=== PATIENT | male | born 1970 | race Caucasian/White ===

== ENCOUNTER 2018-03-31 16:02 | Outpatient (CLI) | payer OTHER, SELFPAY ==
[2018-04-02 12:00] LABS: HIV-1/2 Ag & Ab Screen Negative (NEGAT)
== END 2018-03-31 16:22 ==
DX: Z11.4 Encounter for screening for human immunodeficiency virus [HIV] (principal)
CPT/HCPCS: 36415; 87389

== ENCOUNTER 2018-04-27 22:07 | Emergency (ER) | payer OTHER, SELFPAY ==
[2018-04-27 22:14] VITALS: BP 147/92; PULSE 108; RESP 24; TEMP 36.7; O2SAT 97
--- NOTE | 2018-04-27 22:26 | ED.GENADUL_ITS ---
Discharge Plan Disposition Patient Disposition: HOME Condition: Stable Discharge Details Chief Complaint: Orthopedic Clinical Impression: Right ankle sprain Primary Care Provider: Janki,Local ED Provider: Janny Statno Home Meds and New Rx's Prescriptions: No Action dextroamphetamine-amphetamine 10 MG tablet 10 mg PO QID RF: 0 testosterone cypionate 100 MG/ML oil 50 mg IM RF: 0 ipratropium-albuterol 3 ML solution for nebulization 3 ml Inhalation Q6H Qty: 30 RF: 0 Ventolin HFA 60 PUFF/INH HFA aerosol inhaler 18 gm Inhalation Q6H Qty: 1 RF: 0 fluticasone 16 GM spray,suspension 16 gm NS DAILY Qty: 1 RF: 0 Discharge Instructions Instructions: Ankle Sprain (ED) Additional Instructions: Rest, ice, and elevate right foot as much as possible. Alternate motrin and tylenol as needed and directed for pain. Use crutches for ambulation. Follow up with orthopedics if your pain persists or worsens. Return immediately to the emergency department for re-evaluation and/or additional imaging if your symptoms worsen. Referrals: Prieto Lakhani MD [ [facility] STAFF PHYSICIAN] - Discharge Data Discharge Physician: Janny Staton Medical Decision Making 48-year-old male who presents with right ankle pain after slipping and falling on ice this afternoon. Patient has not taken anything for pain. No acute findings on exam. No deformity. Neurovascular intact. We will give a dose of ibuprofen and sent for right ankle x-ray. Patient is requesting additional medicine for pain. Will give a dose of Tylenol. 2340 --x-ray reviewed and negative for acute fracture. Soft tissue swelling noted. Patient is complaining of persistent significant pain. Patient states it is mainly in his right anterior ankle. He is also c/o pain on top of his foot near his ankle. Pt initially denied foot pain and only c/o R ankle pain. Xray was able to view R foot at area of pt's pain but pt was offered additional imaging with foot xray and/or CT of foot/ankle but pt is declining this at this time. Pt is requesting a lidoderm patch. Will place lidoderm patch, presley wrap/stirrup splint and crutches. Pt is instructed to f/u with orthopedics if pain persists or worsens and return to the emergency department at anytime if he has persistent worsening symptoms for repeat imaging including x-ray or CT. Patient has not taken any medication prior to his arrival to the ED tonight. He is instructed that the best plan would be to take ibuprofen every 6 hours for the next few days, rest, ice and elevate Medical Records Medical records reviewed: Yes I reviewed the patient's medical records. Imaging Data Radiologic Study: Radiologist's impression: XR Right Ankle Complete, 3 or more Views EXAM DATE/TIME: 04/27/2018 10:26 PM FINDINGS: Bones/joints: Bone mineralization is age-appropriate. There is no evidence of fracture. No evidence of dislocation. Noninflamed enthesophyte seen within the region of the Achilles tendon.There is a noninflamed plantar enthesophyte. The joint spaces are adequately preserved; no significant degenerative narrowing and no bony erosion seen. Soft tissues: No radiopaque foreign body present. There is soft tissue swelling present. IMPRESSION: 1. No acute osseous abnormality. 2. Soft tissue swelling only. HPI General Mode of arrival: wheelchair . Date/Time Provider Initiated Documentation: 04/27/18 22:23 . Limitations to Documentation: no limitations . Information obtained by: patient . HPI Narrative: Patient is a 48-year-old male who presents with right ankle pain after slipping and falling on ice 3 PM today. Patient states he has been ambulating but with pain. Patient is complaining of pain in the anterior right ankle. Denies any foot or heel pain. Patient has not taken anything for pain. Related Data Home Medications Medication Instructions Recorded Confirmed dextroamphetamine-amphetamine 10 mg PO QID 11/08/17 04/27/18 testosterone cypionate 50 mg IM 11/08/17 Ventolin HFA 18 gm INHALATION Q6H #1 inh 11/13/17 04/27/18 fluticasone 16 gm NS DAILY #1 btl 11/13/17 04/27/18 ipratropium-albuterol 3 ml INHALATION Q6H #30 vial 11/13/17 04/27/18 Previous Rx's Medication Instructions Recorded Ventolin HFA 18 gm INHALATION Q6H #1 inh 11/13/17 fluticasone 16 gm NS DAILY #1 btl 11/13/17 ipratropium-albuterol 3 ml INHALATION Q6H #30 vial 11/13/17 Allergies Allergy/AdvReac Type Severity Reaction Status Date / Time No Known Allergies Allergy Unverified 04/27/18 22:18 General Stated Complaint: Orthopedic LISA: 4 Review of Systems Review of Systems All systems reviewed & are unremarkable except as noted in HPI and below Constitutional Reports as per HPI, Denies chills and Denies fever(s) Eyes Denies blurry vision ENT Denies dizziness, Denies sore throat and Denies throat swelling Cardiovascular Denies chest pain and Denies dyspnea Respiratory Denies dyspnea Gastrointestinal Denies abdominal pain, Denies diarrhea and Denies vomiting Genitourinary Denies hematuria and Denies dysuria Musculoskeletal Denies back pain and Denies numbness Integumentary/Breasts Denies lesions and Denies rash Neurologic Denies dizziness and Denies numbness Allergic/Immunologic Denies throat swelling PFSH Medical History Obstructive sleep apnea (Chronic) Surgical History History of surgical removal of pilonidal cyst (Acute) Hx of cholecystectomy (Chronic) Social History Smoking/Tobacco Use Status: Current every day Exam Const General: cooperative, healthy appearing and no acute distress HENMT Head: normal to inspection Mouth: oral mucosae normal Eyes General: appearance normal, both eyes and all related structures Neck Neck: normal visual inspection Resp Effort & Inspection: normal respiratory effort and able to speak in complete sentences Cardio Rate: regular rate Skin General skin exam: no rashes or lesions noted Neuro General: alert, awake and oriented x3 Motor: muscle tone normal throughout Extrem Left lower extremity: ankle Details: tenderness (Anterior. No pain, tenderness or edema in lateral or medial malleolus.), no edema and normal ROM; no warmth, no ecchymosis, no crepitus and no foreign bodies and foot Details: normal capillary refill, normal to inspection and vascular exam Details: dorsalis pedis pulse present and posterior tibial pulse present; no ecchymosis and no crepitus Psych Appearance: grossly normal Affect: normal affect Course Vital Signs Temperature 98.1 F 04/27/18 22:14 Pulse 108 H 04/27/18 22:14 Respiratory Rate 24 04/27/18 22:14 Blood Pressure 147/92 H 04/27/18 22:14 Pulse Oximetry 97 04/27/18 22:14 Temperature 98.1 F 04/27/18 22:14 Temperature Source Temporal Artery Scan 04/27/18 22:14 Pulse 108 H 04/27/18 22:14 Respiratory Rate 24 04/27/18 22:14 Respiratory Effort 04/27/18 22:14 Blood Pressure 147/92 H 04/27/18 22:14 Blood Pressure Position Sitting 04/27/18 22:14 Pulse Oximetry 97 04/27/18 22:14 Oxygen Delivery Method Room Air 04/27/18 22:14 Oxygen Flow Rate 0 04/27/18 22:14 Pain Level 8 04/27/18 22:16
[2018-04-27] MEDS: Ibuprofen 600 MG TAB PO (22:30)
--- NOTE | 2018-04-27 22:37 | DI.RAD_ITS ---
SYMPTOM/DIAGNOSIS: S/P TWISTING INJURY, R/O ACUTE FRACTURE RIGHT ANKLE: 04/27 Three views were obtained. No fracture is seen. The ankle mortise appears well maintained.
[2018-04-27] MEDS: Acetaminophen 500 MG TAB 1000 MG PO (22:45)
--- NOTE | 2018-04-27 23:28 | NUR.NOTE ---
Nursing Note: MD updated that pt is still uncomfortable and would like an update as to plan of care. Pt is unsatisfied with Tylenol/ibuprofen pain management.
--- NOTE | 2018-04-27 23:31 | DI.VRAD_ITS ---
EXAM: XR Right Ankle Complete, 3 or more Views EXAM DATE/TIME: 04/27/2018 10:26 PM CLINICAL HISTORY: 48 years old, male; Pain and injury or trauma; Fall; Initial encounter; Blunt trauma; Ankle; Right; Injury details: S/P twisting injury, R/O acute fracture TECHNIQUE: XR Right ankle 3 or more views. COMPARISON: No relevant prior studies available. FINDINGS: Bones/joints: Bone mineralization is age-appropriate. There is no evidence of fracture. No evidence of dislocation. Noninflamed enthesophyte seen within the region of the Achilles tendon.There is a noninflamed plantar enthesophyte. The joint spaces are adequately preserved; no significant degenerative narrowing and no bony erosion seen. Soft tissues: No radiopaque foreign body present. There is soft tissue swelling present. IMPRESSION: 1. No acute osseous abnormality. 2. Soft tissue swelling only. Dictated and Authenticated by: David Benitez MD. Ordering:GAEL Soliman MD
[2018-04-27] MEDS: Lidocaine 5% Patch 1 PATCH TP (23:44)
== END 2018-04-28 00:09 | disposition home or self-care (01) ==
PROVIDERS: Emergency Provider Physician Assistant
DX: S93.401A Sprain of unspecified ligament of right ankle, initial encounter (principal); W00.0XXA Fall on same level due to ice and snow, initial encounter
CPT/HCPCS: 29515; 99283; 73610; E0114; L1902

== ENCOUNTER 2018-11-24 13:34 | Outpatient (REF) | payer OTHER, SELFPAY | END 2018-11-24 13:54 | LOC: NCHCN 13:34 | PROVIDERS: PCP Nurse Practitioner; Visit Provider Nurse Practitioner Family | DX: R19.7 Diarrhea, unspecified (principal) | CPT/HCPCS: 87324 ==

== ENCOUNTER 2020-02-26 13:28 | Outpatient (REF) | payer OTHER, SELFPAY ==
[2020-02-26 20:59] LABS: HCT 49.3 % (40.0-50.0); HGB 17.2 g/dL (13.5-17.5); MCH 32.8 pg (27.0-33.0); MCHC 34.9 % (32.0-36.0); MCV 93.9 fL (80-95); MPV 11.4 fL (8.0-11.0); Platelet Count 155 10^3/uL (130-400); RBC 5.25 10^6/uL (4.36-5.78); RDW 12.6 % (11.8-14.1); RDW-SD 44.1 fL; WBC 6.91 10^3/uL (4.4-10.8)
[2020-02-26 21:48] LABS: ALT 50 U/L (16-63); AST 26 U/L (15-37); Albumin 4.1 g/dL (3.4-5.0); Alkaline Phosphatase 60 U/L (46-116); Anion Gap 7.5 mmol/L (3-11); BUN 20 mg/dL (7-18); Bilirubin, Total 0.5 mg/dL (0.2-1.0); CO2 27.5 mmol/L (21.0-32.0); CREATININE 1.34 mg/dL (0.70-1.30); Calcium 9.1 mg/dL (8.5-10.1); Chloride 104 mmol/L (98-107); Estimated GFR 56.66 (mL/min/1.73m2); Glucose 132 mg/dL (74-106); Potassium 3.9 mmol/L (3.5-5.1); Sodium 139 mmol/L (136-145); Total Protein 7.5 g/dL (6.4-8.2)
[2020-02-29 10:09] LABS: HIV-1/2 Ag & Ab Screen Negative (Negative)
[2020-02-29 10:47] LABS: Hepatitis C Ab w Rflx HCV PCR Negative (Negative)
== END 2020-02-26 13:48 ==
LOC: NCHCN 13:28
PROVIDERS: PCP Nurse Practitioner; Visit Provider Internal Medicine
DX: Z72.51 High risk heterosexual behavior (principal); K76.0 Fatty (change of) liver, not elsewhere classified
CPT/HCPCS: 80053; 85027; 86803; 87389

== ENCOUNTER 2020-05-20 03:24 | Outpatient (CLI) | payer OTHER, SELFPAY ==
[2020-05-21 16:47] LABS: COVID-19 RT-PCR Result NEGATIVE (Negative)
== END 2020-05-20 03:44 ==
PROVIDERS: PCP Nurse Practitioner; Visit Provider Family Medicine
DX: Z11.52 Encounter for screening for COVID-19 (principal); Z01.811 Encounter for preprocedural respiratory examination
CPT/HCPCS: U0003

== ENCOUNTER → 2020-05-23 04:13 | Outpatient (CLI) | payer OTHER, SELFPAY ==
[2020-05-23] MEDS: Inhaler, Assist Device 1 EACH MC (16:28)
[2020-05-23] MEDS: Albuterol HFA 18 GM 200 PUFF INH IH (16:28)
--- NOTE | 2020-05-26 17:54 | W.PFT ---
Date of service: 05/23/20 Time of Service: 03:00 Pulmonary Function Test Result Interpretation Spirometry: Shows no evidence of obstructive airways disease, no bronchodilator response Lung Volumes: No evidence of restriction Diffusion Capacity: Elevated even when corrected to alveolar volume Airway Pressure: Normal Impression Isolated elevated diffusion capacity. This constellation of findings can be seen in asthma, therefore if the diagnosis of asthma is in question, proceeding with methacholine challenge testing may prove to be useful Clinical Correlation therefore is recommended.
== END ==
PROVIDERS: PCP Internal Medicine; Visit Provider Internal Medicine
DX: R05 Cough (principal); R06.09 Other forms of dyspnea; Z87.891 Personal history of nicotine dependence
CPT/HCPCS: 94060; 94726; 94729

== ENCOUNTER 2021-09-01 14:50 | Outpatient (REF) | payer SELFPAY ==
[2021-09-01 13:56] LABS: HCT 50.7 % (40.0-50.0); HGB 17.4 g/dL (13.5-17.5); MCH 31.5 pg (27.0-33.0); MCHC 34.3 % (32.0-36.0); MCV 92 fL (80-95); MPV 11.3 fL (8.0-11.0); Platelet Count 130 10^3/uL (130-400); RBC 5.53 10^6/uL (4.36-5.78); RDW 12.3 % (11.8-14.1); RDW-SD 41.4 fL
[2021-09-01 14:11] LABS: ALT 72 U/L (16-63); AST 31 U/L (15-37); Alkaline Phosphatase 66 U/L (46-116); Anion Gap 7.1 mmol/L (3-11); BUN 12 mg/dL (7-18); Bilirubin, Total 0.3 mg/dL (0.2-1.0); CO2 29.9 mmol/L (21.0-32.0); CREATININE 1.2 mg/dL (0.70-1.30); Calcium 8.4 mg/dL (8.5-10.1); Chloride 103 mmol/L (98-107); Glucose 202 mg/dL (74-106); Hemoglobin A1C 6.3 % (<5.7); Potassium 3.9 mmol/L (3.5-5.1); Sodium 140 mmol/L (136-145); Total Protein 7.6 g/dL (6.4-8.2)
== END 2021-09-01 14:51 | disposition home or self-care (01) ==
LOC: NCHCN 14:50
PROVIDERS: PCP Internal Medicine; Visit Provider Family Medicine
DX: Z00.00 Encounter for general adult medical examination without abnormal findings (principal); G47.419 Narcolepsy without cataplexy; K76.0 Fatty (change of) liver, not elsewhere classified; E66.9 Obesity, unspecified; Z13.1 Encounter for screening for diabetes mellitus
CPT/HCPCS: 80053; 85027; 83036

== ENCOUNTER 2021-11-28 12:02 | Outpatient (CLI) | payer OTHER, SELFPAY ==
[2021-11-29 11:52] LABS: Syphilis Serology (RPR) Positive (Negative)
[2021-12-02 14:18] LABS: Testosterone, Total 392 ng/dL (240-950)
[2021-12-04 09:37] LABS: RPR Titer 1:32 (Negative)
[2021-12-04 09:39] LABS: RPR Screen w/Reflex Positive (Negative)
== END 2021-11-28 12:03 | disposition home or self-care (01) ==
LOC: LBO 12:03
PROVIDERS: PCP Internal Medicine; Visit Provider Internal Medicine
DX: A53.0 Latent syphilis, unspecified as early or late (principal); E29.1 Testicular hypofunction
CPT/HCPCS: 0064U; 36415; 84403; 86593; 86780; 86592

== ENCOUNTER 2022-02-02 01:03 | Outpatient (RCR) | payer OTHER, SELFPAY ==
--- OUTSIDE RECORDS SUMMARY | 2022-01-26 01:19 | XMS_ITS | Encounter Summary ---
:1970 Author Organization [facility] Address [address] [address] Care Team Providers Name Role Phone Vandana Helton MD Primary Care Provider Encounter Details Date Type Department Care Team Description 01/01/2019 Office Visit Urology at [facility] [place] Tolu Kovacs, Erectile dysfunction, [facility] unspecified erectile Drive [facility] [place] [address] UROLOGY [phone] [place], [place] [address] Social History Tobacco Use Types Packs/Day Years Used Date Current Every Day Smoker Smokeless Tobacco: Never Used Comments: 3/4 pack Sex Assigned at Date Recorded Not on file documented as of this encounter Last Filed Vital Signs Vital Sign Reading Time Taken Comments Blood Pressure 142/91 01/01/2019 1:02 PM EDT Pulse 84 01/01/2019 1:02 PM EDT Temperature 37.5 ??C (99.5 ??F) 01/01/2019 1:02 PM EDT Respiratory Rate - - Oxygen Saturation - - Inhaled Oxygen Concentration - - Weight - - Height - - Body Mass Index - - documented in this encounter Progress Notes Tolu Kovacs MD - 01/01/2019 1:00 PM EDT I had the pleasure of seeing Mr. Olson back today in followup. He presents today for duplex Dopplerultrasonography of his penis to identify and characterize his erectile dysfunction and to properly titrate appropriate intercavernosal injection therapy. ?? PROCEDURE: The patient was brought back to the procedure room. The procedure was explained in detailand he agreed to proceed. He was given an injection of 20 units of mix #5. This is a standard range dose mix consisting of 30 mg papaverine, 1 mg phentolamine, and 10 mcg prostaglandin E1. About 15 minutes later, he had a 30% erection and measurements were taken. There was no abnormal penile curvatureseen. Cavernosal arterial diameters were 1.4 mm on the right and 1.4 mm on the left. Peak systolic velocities were 42 cm/second on the right and 40 cm/second on the left. End diastolic velocities were 6 cm/second on the right and 6 cm/second on the left. More distally, PSV/EDV was 27/6 cm/s (midsharft) on the right and 25/9 (distal shaft on the right). More distally, PSV/EDV was 23/7 (midshaft) on the left) and 18/7 (distal shaft on the left). No perforators were seen traversing between the corpora. Cavernosal arteries had normal vascular integrity and smooth vessel newsome. Erectile tissue appeared normal with intact integrity and homogeneity throughout. There were no plaques seen on grayscale evaluation for Peyronie's disease. Tunica albuginea integrity appeared normal, with smooth and continuous tunica with thickness less than 2 mm. At the end of the procedure, his phallus had mostly detumesced. He denied penile pain. He was discharged from clinic with appropriate plans for followup. ?? ASSESSMENT/PLAN: Mr. Olson is a very pleasant 48-year-old gentleman with isolated venoocclusive erectile dysfunction. We discussed this issue at length today. I think he will do well with a sample of mix #9 (40 mcg alprostadil Trimix) at similar dosing at home. We discussed proper dosing and administration of this medication as well as potential side effects in detail. We also discussed priapism Aure advised him to seek medical attention for a prolonged painful erection that does not resolve after4 hours. He expressed understanding and would like to proceed. I have given him a sample dose and supplies and I will see him back in one month to assess his progress. ?? Thank you for allowing me to participate in his care. Please do not hesitate to contact me if you have any questions. documented in this encounter Plan of Treatment Not on filedocumented as of this encounter Visit Diagnoses Diagnosis Erectile dysfunction, unspecified erecti le dysfunction type documented in this encounter Care Teams Outpatient Program Coordinator Relationship Specialty Start Date End Date Vandana Helton MD PCP - General Family Medicine 10/31/18 [address] [place] [address] documented as of this encounter
--- OUTSIDE RECORDS SUMMARY | 2022-01-26 01:19 | XMS_ITS | Encounter Summary ---
:1970 [place] [address] Care Team Providers Name Role Phone Vandana Helton MD Primary Care Provider Encounter Details Date Type Department Care Team Description 03/16/2019 Telephone Urology [place] [facility] [place]u Kovacs MD [facility] [place] [address] UROLOGY [phone] [place], [place] [address] (Wo rk) Social History Tobacco Use Types Packs/Day Years Used Date Current Every Day Smoker Smokeless Tobacco: Never Used Comments: 3/4 pack Sex Assigned at Date Recorded Not on file documented as of this encounter Miscellaneous Notes Telephone Encounter - Lita Perea - 03/16/2019 12:02 PM EST Called PT and LMOM asking PT to please call back. PT canceled 03/13/[address] Kovacs via [employer]. Looking to see if PT wants to reschedule. Will mail letter. documented in this encounter Plan of Treatment Not on filedocumented as of this encounter Visit Diagnoses Not on filedocumented in this encounter Care Teams Operative Supervisor Relationship Specialty Start Date End Date Vandana Helton MD PCP - General Family Medicine 10/31/18 [address] [place] [address] documented as of this encounter
--- OUTSIDE RECORDS SUMMARY | 2022-01-26 01:19 | XMS_ITS | Clinical Summary ---
:1970 Author Organization [facility] [place] [address] Care Team Providers Name Role Phone Vandana Helton MD Primary Care Provider Allergies No known active allergies Medications Medication Sig Dispensed Refills Start End Date Status Date cycloSPORINE Restasis 0.05 % eye 0 Active (RESTASIS) 0.05 % drops in a Dropperette dropperette dextroamphetamine dextroamphetamine 10 mg tablet 0 Active (DEXTROSTAT) 10 mg TAKE 2 TABLETS (20MG) BY MOUTH TWICE A DAY Tablet TRUVADA 200-300 mg daily. 0 A ctive Tablet 9 XENICAL 120 mg 0 Activ e Capsule 9 sildenafil (VIAGRA) take 1 tablet by 0 Active 100 mg Tablet mouth prior to 9 intercourse if needed testosterone Inject 0.5 mLs into 5 mL 3 Active cypionate the muscle every 7 9 (DEPOTESTOSTERONE days. CYPIONATE) 200 mg/mL Oil testosterone Inject 0.5 mLs into 5 mL 5 Active cypionate the muscle every 7 0 (DepoTESTOSTERONE days. Cypionate) 200 mg/mL Oil Syringe with Needle, Inject 1 Syringe into 10 Syringe 3 Active Safety (BD Integra the muscle every 7 0 Syringe) 3 mL 25 days. gauge x 1 Syringe Active Problems Problem Noted Date Erectile dysfunction 10/09/2018 Peyronie's disease 10/09/2018 Hypogonadism in male 10/09/2018 Encounters Date Type Specialty Care Team Description 01/09/2022 Telephone Infectious Diseases Rafal Harrington RN from Last 3 Months Immunizations Name Administration Dates Next Due Tdap Vaccine 11/19/2018 Social History Tobacco Use Types Packs/Day Years Used Date Current Every Day Smoker Smokeless Tobacco: Never Used Comments: 3/4 pack Sex Assigned at Date Recorded Not on file Last Filed Vital Signs Vital Sign Reading Time Taken Comments Blood Pressure 120/70 01/29/2019 3:43 PM EDT Pulse 93 01/29/2019 3:43 PM EDT Temperature 37.3 ??C (99.1 ??F) 01/29/2019 3:43 PM EDT Respiratory Rate - - Oxygen Saturation 97% 10/09/2018 10:58 AM EDT Inhaled Oxygen Concentration - - Weight 113.4 kg (250 lb) 08/13/2018 8:20 AM EDT Height 167.8 cm (5' 6.05) 08/13/2018 8:20 AM EDT Body Mass Index 40.29 08/13/2018 8:20 AM EDT Plan of Treatment Health Maintenance Due Date Last Done Comments Pneumococcal Vaccine: At-Risk 5-64yrs (1 - PCV) 1977 HIV screen 1989 Hepatitis C Screening 1989 Lipid Screening 1989 Colonoscopy 01/19/2016 Covid-19 Vaccine (2 - Booster for Rufus series) 11/02/2020 09/07/2020 Zoster vaccine (1 of 2) 2021 Influenza (Flu) vaccine (1 of 1 - Influenza standard 01/04/2022 series) Tetanus vaccine 11/19/2028 11/19/2018 Tdap adult Completed 11/19/2018 Insurance Payer Benefit Plan / Subscriber ID Effective Dates Phone Addre ss Type Group HEALTH PLANS [facility] [id number] 2018-Present [address] [place] [address] Care Teams Deputy Chief Counsel Relationship Specialty Start Date End Date Vandana Helton MD PCP - General Family Medicine 10/31/18 [address] [place], [place] [address]
--- OUTSIDE RECORDS SUMMARY | 2022-01-26 01:19 | XMS_ITS | Encounter Summary ---
:1970 Author Organization [facility] [place] [address] Care Team Providers Name Role Phone Toma Myrick APRN Primary Care Provider [phone] Reason for Visit Consultation (Routine) - Closed Specialty Diagnoses / Procedures Referred By Contact Refer red To Contact Urology Diagnoses Erectile dysfunction, unspecified erectile dysfunction type Cleo Fitzpatrick MD [facility] Urology [facility] [place] [address] [place] [address] Referral ID Status Reason Start Date Expiration Date Visits V isits Requested Authorized [id number] Closed Consult, 08/18/2018 08/18/2019 1 1 Test & Treat Encounter Details Date Type Department Care Team Description 10/09/2018 Office Visit Urology at [facility] [place] Tolu Kovacs, Erectile dysfunction, unspec ified erectile dysfunction type; [facility] Peyronie's disease; [facility] [place] [address] UROLOGY [phone] [place], [place] [address] Social History Tobacco Use Types Packs/Day Years Used Date Current Every Day Smoker Smokeless Tobacco: Never Used Comments: 3/4 pack Sex Assigned at Date Recorded Not on file documented as of this encounter Last Filed Vital Signs Vital Sign Reading Time Taken Comments Blood Pressure 142/81 10/09/2018 10:58 AM EDT Pulse 101 10/09/2018 10:58 AM EDT Temperature - - Respiratory Rate - - Oxygen Saturation 97% 10/09/2018 10:58 AM EDT Inhaled Oxygen Concentration - - Weight - - Height - - Body Mass Index - - documented in this encounter Progress Notes Tolu Kovacs MD - 10/09/2018 11:00 AM EDT S: I have been requested by Dr. Fitzpatrick to see Mr. Olson for my opinion regarding his erectile dysfunction. He is a very pleasant 48-year-old gentleman with a history of erectile dysfunction for thelast 20 years but more profoundly for the last 6 years. He says his penile rigidity is approximately0 % at best without medications. With PDE5 inhibitors he is able to achieve a 20 % erection. He has tried Viagra and Cialis in the past. His spontaneous erections are absent. His sustaining capacities are absent. AM erections are rare, and less frequent than previous. He rates his sexual desire at 100 % and says it is intact. He says his ejaculation is intact. Orgasmis intact. He denies significant penile curvature. He denies penile pain. He did rise a history of penile trauma. He denies blunt perineal trauma or any bicycle riding. Sexual Health Inventory for Men (ELIZABETH) 1. Rate your confidence: 1 2. Hard enough for penetration: 0 3. Maintain after penetration: 0 4. Maintain to completion: 0 5. Satisfaction from intercourse: 0 -- TOTAL 1 -- 1-7 Severe ED 8-11 Moderate ED 12-16 Mild to Moderate ED 17-21 Mild ED Other issues include hypogonadism. He was seen by endocrine for this in August. He has been on testosterone for many years, and most recently was injecting 0.5 mL of testosterone cypionate 200 mg/mL every 7 days. Hematocrit was 46.7 at this dose, testosterone was 575 at this dose, PSA was 0.55 at this dose. These labs were drawn midcycle in August. He wishes to transfer his testosterone care to my practice. Past medical history is notable for dry eyes, sleep apnea, narcolepsy, hypertriglyceridemia. Past surgical history includes pilonidal cyst excision. From a social perspective, he smokes three quarters of pack per day and has a 5-pack-year history ofsmoking. Alcohol usage is rare. Street drug usage is denied. He is single. He works as a analytical lab technician. Family history is negative for any genitourinary cancers. He has no known drug allergies. His medications were reviewed and are consistent with those in the electronic medical record. A review of systems was performed and he has no pertinent positives, except for those listed in the history of present illness. O: On physical exam today he is in general a healthy, well-appearing man. He is awake, alert and oriented to person place and time. Mood and affect are normal. ? Gait: Normal and neurologically intact ? Skin: Warm and dry, no visible scars or lesions HEENT: EOMI, PERRLA, NC/AT ? Lungs: No audible wheezing, normal respiratory effort. ? His abdomen is soft, nontender, nondistended. His phallus is uncircumcised. He has a frenular piercing. There are no penile plaques or lesions. Hehas a patent, orthotopic urinary meatus. Both testes are scrotally located. The bilateral cords are palpable and within normal limits. There are no testicular masses or nodules bilaterally. His scrotumis without edema or erythema. A digital rectal exam was deferred. A: This is a 48-year-old gentleman with erectile dysfunction and hypogonadism. P: We discussed ED at length, including the etiology and natural history of the disease. We specifically talked about the management of ED. I explained that PDE5 inhibitors tend to lose efficacy as ED progresses, and that he is no longer responding to these medications at this point. We then discussedthe treatment algorithm for ED, and I explained his options. These include vacuum erection devices, intraurethral alprostadil, intracavernosal injection therapy, and an inflatable penile prosthesis. Heseemed most comfortable with proceeding with ICI therapy after extensive explanation of the risks and benefits. As such, I will schedule him to have a penile duplex Doppler ultrasound with me. This will allow us to both definitively diagnose the cause of his ED and to tailor the appropriate medicationregimen regarding ICI. He was in agreement with this plan and expressed understanding. All of his questions were answered at length. I spent approximately 35 of the 40 minutes of our appointment in extensive [id number] counseling regarding his ED. I refilled his testosterone prescription and syringe prescription. I advised him on the need for 6-month lab checks of testosterone, hematocrit, and PSA. He is in agreement with proceeding. I will keep you updated as we move forward. Thank you very much for this kind referral. Please do not hesitate to contact me if you have any questions. documented in this encounter Plan of Treatment Not on filedocumented as of this encounter Visit Diagnoses Diagnosis Erectile dysfunction, unspecified erecti le dysfunction type Peyronie's disease Hypogonadism in male documented in this encounter Care Teams [place]hateria Attendant Relationship Specialty Start Date End Date Toma Myrick APRN PCP - General Family Medicine 05/14/18 10/30/18 [address] [place] [address] documented as of this encounter
--- OUTSIDE RECORDS SUMMARY | 2022-01-26 01:19 | XMS_ITS | Encounter Summary ---
:1970 [place] [address] Care Team Providers Name Role Phone Vandana Helton MD Primary Care Provider Encounter Details Date Type Department Care Team Description 02/16/2020 Orders Only Urology at [facility] Tolu Kovacs MD [facility] [place] [address] UROLOGY [phone] [place], [place] [address] (Wo rk) Social History Tobacco Use Types Packs/Day Years Used Date Current Every Day Smoker Smokeless Tobacco: Never Used Comments: 3/4 pack Sex Assigned at Date Recorded Not on file documented as of this encounter Plan of Treatment Not on filedocumented as of this encounter Visit Diagnoses Not on filedocumented in this encounter Care Teams Room Service Food Service Attendant Relationship Specialty Start Date End Date Vandana Helton MD PCP - General Family Medicine 10/31/18 [address] [place] [address] documented as of this encounter
--- OUTSIDE RECORDS SUMMARY | 2022-01-26 01:19 | XMS_ITS | Encounter Summary ---
:1970 Author Organization [facility] [place] [address] Care Team Providers Name Role Phone Vandana Helton MD Primary Care Provider Encounter Details Date Type Department Care Team Description 02/16/2020 Telephone Urology at [facility] Art Garcia, [place] [address] Social History Tobacco Use Types Packs/Day Years Used Date Current Every Day Smoker Smokeless Tobacco: Never Used Comments: 3/4 pack Sex Assigned at Date Recorded Not on file documented as of this encounter Miscellaneous Notes Telephone Encounter - Art Garcia, RN - 02/16/2020 12:17 PM EDT Message left to call and clarify his medication request! documented in this encounter Plan of Treatment Not on filedocumented as of this encounter Visit Diagnoses Not on filedocumented in this encounter Care Teams Senior Maintenance Machinist Relationship Specialty Start Date End Date Vandana Helton MD PCP - General Family Medicine 10/31/18 [address] [place] [address] documented as of this encounter
--- OUTSIDE RECORDS SUMMARY | 2022-01-26 01:19 | XMS_ITS | Encounter Summary ---
:1970 Author Organization [place] [address] Care Team Providers Name Role Phone ElenNhunglori DUMONT Primary Care Provider [phone] Reason for Referral Consultation (Routine) - Closed Specialty Diagnoses / Procedures Referred By Contact Refer red To Contact Urology Diagnoses Erectile dysfunction, unspecified erectile dysfunction type Cleo Fitzpatrick MD [facility] Urology [facility] [place] [address] [place] [address] Referral ID Status Reason Start Date Expiration Date Visits V isits Requested Authorized [id number] Closed Consult, 08/18/2018 08/18/2019 1 1 Test & Treat Reason for Visit Consultation (Routine) - Closed Specialty Diagnoses / Procedures Referred By Contact Refer red To Contact Endocrinology Diagnoses HYPOTHYROIDISM Toma Myrick [facility] Endocrinology [address] [facility] [address] [place] [address] [place] [address] Referral ID Status Reason Start Date Expiration Date Visits V isits Requested Authorized [id number] Closed Consult, 05/14/2018 05/14/2019 1 1 Test & Treat Connection Center Encounter Details Date Type Department Care Team Description 08/13/2018 Office Visit Endocrinology at [facility] Joan Lipscomb MD [facility] [place] [address] Hypogonadism in male; [facility] Cleo Fitzpatrick MD [facility] [place] [address] Erectile dysfunction, unspecified erecti le dysfunction [place] [address] Social History Tobacco Use Types Packs/Day Years Used Date Current Every Day Smoker Smokeless Tobacco: Never Used Comments: 07/07 pack Sex Assigned at Date Recorded Not on file documented as of this encounter Last Filed Vital Signs Vital Sign Reading Time Taken Comments Blood Pressure 126/77 08/13/2018 8:20 AM EDT Pulse 77 08/13/2018 8:20 AM EDT Temperature - - Respiratory Rate - - Oxygen Saturation - - Inhaled Oxygen Concentration - - Weight 113.4 kg (250 lb) 08/13/2018 8:20 AM EDT Height 167.8 cm (5' 6.05) 08/13/2018 8:20 AM EDT Body Mass Index 40.29 08/13/2018 8:20 AM EDT documented in this encounter Progress Notes Cleo Fitzpatrick MD - 08/13/2018 8:00 AM EDT ENDOCRINOLOGY NEW PATIENT APPOINTMENT Patient Name: Rah Olson Date of Appointment: 08/13/2018 ID: Mr. Olson is a 48 yoa M with PMH of JETT who presents to Endocrine clinic 08/13/18 for evaluationof hypogonadism. History of Presenting Illness: Mr. Olson recently moved to the area and is interested in establishing care for ongoing management of hypogonadism. He was initially diagnosed in his 20s [address] Dr. Dempsey in [place] after presenting with erectile dysfunction, but was not interested in starting treatment as he worried he would require it long-term. However, 3 years ago he started on testosterone replacement (prescribed by Dr. Alvarenga in [facility]) as he was bothered by low libido and erectile dysfunction. Testosterone replacement caused dramatic improvement in his mood, energy, and libido, but he continues to have problems getting and maintaining erections. He does however have morning erections. He currently is taking testosterone 100 mg SC weekly (doses on Saturdays). He is unsure if an etiology for hypogonadism was ever found stating he is unsure if it is primary or secondary. He has no history of undescended testicles, trauma, surgery, or infection. He denies any headaches or vision changes and has never had an MRI pituitary. He has never had karyotyping. He notes he previously was very muscular in 20-30s, but denies taking any testosterone or other muscle building agents until testosterone was started 3 years ago. Past Medical History: JETT-wears CPAP Folliculitis Past Surgical History: Cholecystectomy Pilonidal cyst Current Outpatient Medications on File Prior to Visit Medication Sig Dispense Refill ??? testosterone cypionate (DEPOTESTOSTERONE CYPIONATE) 200 mg/mL Oil testosterone cypionate 200 mg/mL intramuscular oil weekly ??? cycloSPORINE (RESTASIS) 0.05 % Dropperette Restasis 0.05 % eye drops in a dropperette ??? Syringe with Needle, Safety (BD INTEGRA SYRINGE) 3 mL 25 gauge x 1 Syringe BD Integra Syringe 3mL 25 gauge x 1 ??? dextroamphetamine (DEXTROSTAT) 10 mg Tablet dextroamphetamine 10 mg tablet TAKE 2 TABLETS (20MG) BY MOUTH TWICE A DAY ??? TRUVADA 200-300 mg Tablet daily. 0 ??? XENICAL 120 mg Capsule 0 ??? sildenafil (VIAGRA) 100 mg Tablet take 1 tablet by mouth prior to intercourse if needed 0 No current facility-administered medications on file prior to visit. Allergies: No Known Allergies ROS: Constitutional: tiredness, recent weight change, no heat or cold intolerance Neurological: No headache or weakness. No seizure, fainting or dizziness Eyes: No recent vision changes ENT: No dysphagia, dental issues Cardiovascular: No chest pain or palpitations Respiratory: No cough, wheezing, shortness of breath GI: Normal appetite. No nausea, vomiting, diarrhea, constipation : No frequent urinary tract infections or polyuria, erectile dysfunction Musculoskeletal: No joint aches, muscle pain. No back pain Psychiatric: No depression, anxiety Social History: Recently moved to [place], [place] (moved from [facility] last November). Works as central sterile technician at [employer] Current smoker-1/2 pack to 3/4 pack per day EtOH: Couple drinks monthly No drug use Family History: Father-[place] in 80s Mother-COPD Brother-healthy Vitals Last value Temperature Heart Rate Heart Rate: 77 Blood Pressure BP: 126/77 Respiratory Rate Body mass index is 40.29 kg/m??. Physical Exam: General appearance: Pleasant gentleman sitting in chair, normal muscle bulk HEENT: anicteric, EOMI, moist mucus membranes, thick alvarez CVS: RRR, normal +S1, S2. no murmurs Chest: +chest hair, no gynecomastia Pulm: Breathing comfortably on RA Abd: soft, non-tender, central adiposity+ Extremities: normal muscle bulk and strength Skin: healthy appearing : Declined testicular exam Pertinent Laboratory Findings: LH 1.5Low 1.7 - 8.6 mlU/ML Final FSH 0.7Low 1.5 - 12.4 mlU/ML Final PSA Total 0.55 0.00 - 4.00 ng/mL Final Recent Labs 08/13/18 0929 WBC 6.0 HGB 16.6* HCT 46.7 PLATELET 135* Assessment: Mr. Olson is a 48 yoa M with PMH of JETT who presents to Endocrine clinic 08/13/18 for evaluation of hypogonadism (unclear if primary or secondary, or if underlying etiology identified). He was started on testosterone replacement 3 years ago by [facility]ender in [place], but has recently moved to the area and is interested in transferring care. He is currently taking 100 mg testosterone SC weekly with last dose 4 days ago and feels he has had improvement in mood, energy, and libido since it was commenced. FSH and LH were obtained today and low, consistent with testosterone replacement. Total and free testosterone levels are currently pending and will help in determining if 100 mg weekly dosing is appropriate dose to continue. Hematocrit is upper normal range (likely partly 2/2 tobacco use),so he may require slight lowering of testosterone replacement dose in future. Will also obtain records from Dr. Gunderson to review prior hypogonadism work up. He does continue to have erectile dysfunction, though potential psychological component given intermittent morning erections. He is interested in meeting with Urology to discuss potential treatment options for erectile dysfunction despite testosterone replacement, so a referral was placed today. Plan: #Hypogonadism -Obtained records from prior [facility]ender (Dr. Gunderson [facility]) -Follow up Total and Free testosterone levels (obtained 4 days after weekly injection) -PSA normal, hematocrit upper normal range #Erectile dysfunction -May have psychologic component given intermittent morning erections -Urology referral placed -Follow up free and total testosterone level Patient was seen and discussed with Staff [facility] Tender, Dr. Greta Fitzpatrick PGY 4 Endocrinology Pager [phone] Joan Hart MD - 08/13/2018 8:00 AM EDT I saw this patient with Dr. Fitzpatrick. I reviewed the shaw portions of the history and physical exam,and reviewed pertinent lab data. I answered all patient questions. I was involved in all medical decision making and agree with this plan. JOAN HART MD [employer] Lab Analystnetwork account manager Section of Endocrinology [facility] documented in this encounter Plan of Treatment Scheduled Referrals Name Type Priority Associated Diagnoses Order S chedule Referral to Outpatient Referral Routine Erectile dysfunction, Ordered: Urology unspecified erectile 019 dysfunction type documented as of this encounter Procedures Procedure Name Priority Date/Time Associated Diagnosis Comme nts HEMOGRAM Routine 08/13/2018 9:29 AM Hypogonadism in male R esults for this EDT procedure are i n the results section. DIFFERENTIAL, Routine 08/13/2018 9:29 AM Hypogonadism in male Results for this AUTOMATED EDT procedure are i n the results section. TESTOSTERONE, TOTAL Routine 08/13/2018 9:29 AM Re sults for this AND FREE EDT procedure are i n the results section. CBC (WITH DIFF) Routine 08/13/2018 9:29 AM Hypogonadism in mal e EDT PSA (ULTRASENSITIVE) Routine 08/13/2018 9:29 AM Hypogonadism i n male Results for this EDT procedure are i n the results section. LUTEINIZING HORMONE Routine 08/13/2018 9:29 AM Hypogonadism in male Results for this EDT procedure are i n the results section. FOLLICLE STIMULATING Routine 08/13/2018 9:29 AM Hypogonadism i n male Results for this HORMONE EDT procedure are i n the results section. documented in this encounter Results Differential, Automated (08/13/2018 9:29 AM EDT) P athologist Signature Neutrophils % 52.0 % [facility] Neutr Abs (ANC) 3.11 1.70 - [facility] 6.10 [facility] x10(3)/[facility] LABORATORY Lymphocytes % 33.4 % [facility] Lymphocytes Abs 2.0 0.9 - 3.2 [facility] x10(3)/[facility] LABORATORY Monocytes % 10.2 % [facility] Monocyte Abs 0.6 0.3 - 0.9 [facility] x10(3)/[facility] LABORATORY Eosinophils % 3.5 % [facility] Eosinophils Abs 0.2 0.0 - 0.4 [facility] x10(3)/[facility] LABORATORY Basophils % 0.7 % [facility] Basophils Abs 0.0 0.0 - 0.1 [facility] x10(3)/[facility] LABORATORY Immature Gran % 0.20 % [facility] Comment: Immature granulocytes(IG's)percentage an d absolute count will include metamyelocytes, myelocytes, and promyelo cytes. Blood smears from CBCs yielding IG's will be scanned manually for concor dance. If this scan disagrees with the automated IG or if promyelocytes are not ed, a manual differential will be performed. Dara Gran Abs 0.01 0.00 - 0.04 x10(3)/[facility] MAR Y [facility] LABORATORY Specimen Anatomical Collection Method Collection Time Receive d Time (Source) Location / / Volume Laterality Blood specimen 08/13/2018 9:29 AM 019 9:36 (specimen) EDT AM EDT Resulting Agency Comment Spec In Lab Cleo Fitzpatrick MD HEMATOLOGY ORDERABLES Performing Organization Address City/State/[place] [address] (ABNORMAL) Hemogram (08/13/2018 9:29 AM EDT) Analysis Performed At Patho logist Time Signature WBC 6.0 4.0 - 9.5 [facility] x10(3)/[facility] LABORATORY RBC 5.16 4.58 - [facility] 5.54 [facility] x10(6)/[facility] LABORATORY Hemoglobin 16.6 (H) 13.7 - [place] 16.5 gm/dL [facility] LABORATORY Hematocrit 46.7 40.5 - [facility] 48.5 % [facility] LABORATORY MCV 90.5 82.9 - [facility] 93.1 [facility] LABORATORY MCH 32.2 (H) 27.5 - [place] 32.1 pg [facility] LABORATORY MCHC 35.5 32.0 - [facility] 35.7 gm/dL [facility]ORATORY Platelets 135 (L) 145 - 357 [facility] x10(3)/[facility] LABORATORY RDWSD 40.7 36.0 - [facility] 45.0 [facility] LABORATORY RDWCV 12.3 11.4 - [facility] 13.8 % [facility] LABORATORY MPV 10.9 7.6 - 12.9 [facility] LABORATORY nRBC % Auto 0.0 % [facility] nRBC Abs Auto 0.000 0.000 - [facility] 0.000 [facility] x10(3)/[facility] LABORATORY Specimen Anatomical Collection Method Collection Time Receive d Time (Source) Location / / Volume Laterality Blood specimen 08/13/2018 9:29 AM 019 9:36 (specimen) EDT AM EDT Resulting Agency Comment Spec In Lab Cleo Fitzpatrick MD HEMATOLOGY ORDERABLES Performing Organization Address City/State/[place] [address] Testosterone, total and free (08/13/2018 9:29 AM EDT) P athologist Signature Testo Total 575 250 - 1100 [facility] ng/dL [facility] Comment: For additional information, please refer to http://education.[employer].com/fa q/ MjhogDmiqfdhxxujqWKFCRJQXV791 (This link is being provided for informa tional/ educational purposes only.) This test was developed and its analytic al performance characteristics have been determined by [employer] [place], [place]. It has not been cleared or approved by the U.S. Food and Drug Administration. This assay has been amanda dated pursuant to the CLIA regulations and is used for clinical purposes. Testo Free 88.0 35.0 - 155.0 pg/mL [facility] Comment: This test was developed and its analytic al performance characteristics have been determined by [employer] [place], [place]. It has not been cleared or approved by the U.S. Food and Drug Administration. This assay has been amanda dated pursuant to the CLIA regulations and is used for clinical purposes. Test Performed by [facility], [employer] [facility], [address] [place], [place] [address] Pedro Luis Frost M.D., Ph.D., Director [facility] [employer] , [place] [id number] Specimen Anatomical Collection Method Collection Time Receive d Time (Source) Location / / Volume Laterality Blood specimen 08/13/2018 9:29 AM 019 3:27 (specimen) EDT PM EDT Resulting Agency Comment Spec In Lab Joan Hart MD CHEMISTRY ORDERABLES Performing Organization Address City/[facility]/ZIP Code Phon e Number [address] PSA (08/13/2018 9:29 AM EDT) P athologist Signature PSA Total 0.55 0.00 - [facility] (Ultrasensitiv 4.00 ng/mL [facility] LABORATORY Specimen Anatomical Collection Method Collection Time Receive d Time (Source) Location / / Volume Laterality Blood specimen 08/13/2018 9:29 AM 019 9:36 (specimen) EDT AM EDT Resulting Agency Comment Spec In Lab Joan Hart MD CHEMISTRY ORDERABLES Performing Organization Address City/State/ZIP Code Phon e Number [address] (ABNORMAL) Luteinizing Hormone (08/13/2018 9:29 AM EDT) P athologist Signature LH 1.5 (L) 1.7 - 8.6 [facility] mlU/ML [facility] Comment: Reference ranges: ?? Females ?? Follicular: ? 2.4-12.6 mIU /mL ?? Ovulation: ?14.0-95.6 m IU/mL ?? Luteal: ? 1.0-11.4 m IU/mL ?? Postmenopausal: ? 7.7-58.5 mIU/m L Specimen Anatomical Collection Method Collection Time Receive d Time (Source) Location / / Volume Laterality Blood specimen 08/13/2018 9:29 AM 019 9:36 (specimen) EDT AM EDT Resulting Agency Comment Spec In Lab Joan Hart MD CHEMISTRY ORDERABLES Performing Organization Address City/[facility]/ZIP Code Phon e Number [address] (ABNORMAL) Follicle Stimulating Hormone (08/13/2018 9:29 AM EDT) athologist Signature FSH 0.7 (L) 1.5 - 12.4 [facility] mlU/ML [facility] Comment: Reference Ranges: Females: Follicular: ? 3.5-12.5 mIU/mL Ovulation: ?4.7-21.5 mIU/mL Luteal: ? 1.7-7.7 mIU/mL Postmenopausal: 25.8-134.8 mIU/mL Specimen Anatomical Collection Method Collection Time Receive d Time (Source) Location / / Volume Laterality Blood specimen 08/13/2018 9:29 AM 019 9:36 (specimen) EDT AM EDT Resulting Agency Comment Spec In Lab Joan Hart MD CHEMISTRY ORDERABLES Performing Organization Address City/[facility]/[place] [address] documented in this encounter Visit Diagnoses Diagnosis Hypogonadism in male Erectile dysfunction, unspecified erecti le dysfunction type documented in this encounter Care Teams Vp Delivery Relationship Specialty Start Date End Date Toma Myrick APRN PCP - General Family Medicine 05/14/18 10/30/18 [address] [place] [address] documented as of this encounter
--- OUTSIDE RECORDS SUMMARY | 2022-01-26 01:19 | XMS_ITS | Encounter Summary ---
:1970 Author Organization [facility] [address] Care Team Providers Name Role Phone Vandana Helton MD Primary Care Provider Encounter Details Date Type Department Care Team Description 01/09/2022 Telephone Infectious Disease a t [facility] Rafal Harrington, RN [facility] [place] [address] Social History Tobacco Use Types Packs/Day Years Used Date Current Every Day Smoker Smokeless Tobacco: Never Used Comments: 3/4 pack Sex Assigned at Date Recorded Not on file documented as of this encounter Miscellaneous Notes Telephone Encounter - Rafal Harrington RN - 01/09/2022 3:17 PM EDTSummary: Telephone Call Telephone Call Returned telephone call to nurse Li (called [facility] to inquire about local resources). Passed along resources for her to call her patient back with, such as [facility] (operates on a Sliding-Fee Scale, for patients paying out of pocket, [facility] offers a sliding-fee scale based on your income,household size and other factors). Additionally discussed calling the [place] Department of Public Health. Telephone Encounter - Rafal Harrington RN - 01/09/2022 3:17 PM EDT ----- Message from Estephania Caldwell sent at 01/09/2022 2:47 PM EDT ----- Li from [facility] ( she is the triage nurse) called regarding this pt as he tested positive for syphilis and is refusing to go to transfusion? Was wondering if there was a cheaper option for medication beside Biacillin as he says it cost to much money to get. Call back: [phone] documented in this encounter Plan of Treatment Not on filedocumented as of this encounter Visit Diagnoses Not on filedocumented in this encounter Care Teams Security Officer Relationship Specialty Start Date End Date Vandana Helton MD PCP - General Family Medicine 10/31/18 [address] [place] [address] documented as of this encounter
--- OUTSIDE RECORDS SUMMARY | 2022-01-26 01:20 | XMS_ITS | Encounter Summary ---
:1970 Author Organization [facility] Address [address] [place] [address] Care Team Providers Name Role Phone Choco Escalera MD Primary Care Provider Encounter Details Date Type Department Care Team Description 01/15/2022 Orders Only [facility] Wilda Zhang Enc ounter for screening [facility] Employee Health RN for COVID-19 (Primary [address]) [place] [address] Social History Tobacco Use Types Packs/Day Years Used Date Never Assessed Sex Assigned at Date Recorded Not on file documented as of this encounter Plan of Treatment Not on filedocumented as of this encounter Results COVID-19 TESTING (01/15/2022 7:15 EDT) COVID-19 rt-PCR Negative Negative [facility] Result Comment: [facility] This test has not been FDA c leared or approved. This test has been authorized by FDA under an EUA for use by authorized laboratories. This test has been authorized only for detection of nucleic acid fro m 2019-nCoV, not for any oth er viruses or pathogens. This test is only authorized for the duration of the declaration that circumstances exist justifying the authorization of emergency use of in vitro d iagnostic tests for detectio n and/or diagnosis of 2019-nCoV under section 564(b)(1) of Act, 21 U.S.C ?? 360bbb-3(b) (1), unless the authorization is terminated or revoked sooner. Performed on the [employer] GeneXpert Instrument The 2019 novel coronavirus (SARS-CoV-2) target nucleic acids are not detected. Performing Lab [employer] GeneXpert [facility] Specimen Swab - Anterior nares Performing Organization Address City/State/ZIP Code Phon e Number [facility] [address] [place] [address] documented in this encounter Visit Diagnoses Diagnosis Encounter for screening for COVID-19 - P rimary documented in this encounter Care Teams Grades 9 Through 12 Teacher Relationship Specialty Start Date End Date Choco Escalera MD PCP - General 07/03/21 [address] [place] [address] documented as of this encounter
--- OUTSIDE RECORDS SUMMARY | 2022-01-26 01:20 | XMS_ITS | Encounter Summary ---
:1970 Author Organization [facility] Address [address] [place] [address] Care Team Providers Name Role Phone Unknown, Provider Primary Care Provider Choco Escalera MD Primary Care Provider Encounter Details Date Type Department Care Team Description 02/27/2020 Lab Requisition [facility] Outr Resulting Lab, Pathology & Laboratory Provider [facility] [address] [place] [address] Social History Tobacco Use Types Packs/Day Years Used Date Never Assessed Sex Assigned at Date Recorded Not on file documented as of this encounter Plan of Treatment Not on filedocumented as of this encounter Procedures Procedure Name Priority Date/Time Associated Comments Diagnosis HIV 1/2 ANTIGEN AND Routine 02/26/2020 11:30 Resu lts for this ANTIBODY, 4TH EDT procedure are in GENERATION the results section. documented in this encounter Results HIV 1/2 ANTIGEN AND ANTIBODY, 4TH GENERATION (02/26/2020 11:30 EDT) HIV 1 and 2 Negative Negative [facility] Antibody/p24 Comment: LABORATORY Antigen, 4th If acute HIV-1 infection is suspected in a high risk ??patient, submit plasma specimen for HIV-1 RNA quantitation test. SERV ICES Generation Fourth Generation assay performed on the Siemens codetaga ur. Specimen Blood - Venous blood (substance) Performing Organization Address City/State/ZIP Code Phon e Number [facility] LABORATORY [address] [place] [address] SERVICES documented in this encounter Visit Diagnoses Not on filedocumented in this encounter Care Teams Elevators Inspector Relationship Specialty Start Date End Date Unknown, ProviderMD PCP - General 08/11/18 07/02/21 Choco Escalera MD PCP - General 07/03/21 [address] [place] [address] documented as of this encounter
--- OUTSIDE RECORDS SUMMARY | 2022-01-26 01:20 | XMS_ITS | Encounter Summary ---
:1970 Author Organization [facility] Address [address] [place] [address] Care Team Providers Name Role Phone Choco Escalera MD Primary Care Provider Encounter Details Date Type Department Care Team Description 11/28/[address] [facility] Outr Resulting Lab, Pathology & Laboratory Provider [facility] [address] [place] [id number] Social History Tobacco Use Types Packs/Day Years Used Date Never Assessed Sex Assigned at Date Recorded Not on file documented as of this encounter Plan of Treatment Not on filedocumented as of this encounter Procedures Procedure Name Priority Date/Time Associated Diagnosis Comme nts RPR TITER, S Today 11/28/2021 11:52 Results for this EDT procedure are i n the results section. RPR W/ REFLEX TO Today 11/28/2021 11:52 Results for this TP-PA, S EDT procedure are i n the results section. SYPHILIS SEROLOGY Routine 11/28/2021 11:52 Result s for this EDT procedure are i n the results section. documented in this encounter Results (ABNORMAL) RPR TITER, S (11/28/2021 11:52 EDT) RPR TITER 1:32 (A) Negative [facility] (REFLEX), S Comment: LABORATORIES (WELCOME) Results consistent with untreated or recently treated syphilis. Clinical correlation required. For additional information on interpretation of the syphilis reverse algorithm and results, see: [email or web address] Test Performed by: [facility] [place] [address] [place] [id number] Kitchen Runner: Deon Shell M.D. Ph.D.; CLIA# [id number] Specimen Blood - Venous blood (substance) Performing Organization Address City/State/ZIP Code [facility] e Number [facility]IES [address] [place] [address] (ABNORMAL) RPR W/ REFLEX TO TP-PA, S (11/28/2021 11:52 EDT) RPR W/ REFLEX TO Positive (A) Negative [facility] TP-PA, S Comment: LABORATORIES Specimen reflexed to determine RPR titer. ?? For additional information on interpretation of the syphilis reverse algorithm and results, see: [email or web address] Test Performed by: [facility] - [facility] [address] [facility], [place] [address] Kitchen Runner: Deon Shell M.D. Ph.D.; CLIA# [id number] Specimen Blood - Venous blood (substance) Performing Organization Address [place] [facility]/ZIP Code Phon e Number [facility] [address] [place] [address] (ABNORMAL) SYPHILIS SEROLOGY (11/28/2021 11:52 EDT) Syphilis Serology Positive (A) Negative [facility] Comment: LABORATORY SERVICES Reflex RPR Screen sent to [place]. If RPR is Positive, it will reflex to Titer. If RPR is Negative, it will reflex to TP-PA testing. Specimen Blood - Venous blood (substance) Performing Organization Address [place] [facility] Code Phon e Number [facility] [address] [place] [address] SERVICES documented in this encounter Visit Diagnoses Not on filedocumented in this encounter Care Teams Ware Dresser Relationship Specialty Start Date End Date Choco Escalera MD PCP - General 07/03/21 [address] [place], [place] [id number] documented as of this encounter
--- OUTSIDE RECORDS SUMMARY | 2022-01-26 01:20 | XMS_ITS | Encounter Summary ---
:1970 Author Organization [facility] Address [address] [place] [address] Care Team Providers Name Role Phone Unknown, Jimmie HEATH Primary Care Provider Choco Escalera MD Primary Care Provider Encounter Details Date Type Department Care Team Description 11/20/2020 Lab Requisition [facility] Outr Resulting Lab, Pathology & Laboratory Provider [facility] [address] [place] [address] Social History Tobacco Use Types Packs/Day Years Used Date Never Assessed Sex Assigned at Date Recorded Not on file documented as of this encounter Plan of Treatment Not on filedocumented as of this encounter Procedures Procedure Name Priority Date/Time Associated Comments Diagnosis QUANTIFERON TB GOLD Routine 11/18/2020 10:46 Resu lts for this PLUS EDT procedure are i n the results section. documented in this encounter Results QUANTIFERON TB GOLD PLUS (11/18/2020 10:46 EDT) Quantiferon Negative Negative [facility] MEDICAL Interpretation Comment: CENTER LABORATORY No interferon-gamma response to M. tuberculosis antigens was detected. ??Infection with M. tuberculosis is unlikely. A single negative result does not exclude infection with M. tuberculosis. ??In patien SERVICES ts at high risk for M. tuber culosis infection, a second test should be considered in accordance with the 2017 ATS/IDSA/CDC Clinical Practice Guidelines for Diagnosis of Tuberculosis in Adults and Childr en. [Gaetano CISNEROS et. al. Clin. Infect. Dis. 2017:64 ( 2) ??: 111-115]. Results were obtained with the Qiagen QuantiFERON TB G old Plus MANUEL. TB1 Ag minus Nil 0.00 IU/ml [facility] TB2 Ag minus Nil 0.00 IU/mL [facility] Specimen Blood - Venous blood (substance) Narrative [facility] - 11/23/2020 12:54 EDT Results were obtained with the Qiagen Qu antiFERON-TB Gold Plus MANUEL. Performing Organization Address City/State/ZIP Code Phon e Number [facility] [address] [place] [address] SERVICES documented in this encounter Visit Diagnoses Not on filedocumented in this encounter Care Teams Fuel System Maintenance Worker Relationship Specialty Start Date End Date Unknown, MD Jimmie PCP - General 08/11/18 07/02/21 Choco Escalera MD PCP - General 07/03/21 [address] [place] [address] documented as of this encounter
--- OUTSIDE RECORDS SUMMARY | 2022-01-26 01:20 | XMS_ITS | Clinical Summary ---
:1970 Author Organization [facility] Address [address] [place] [address] Care Team Providers Name Role Phone Choco Escalera MD Primary Care Provider Encounters Date Type Specialty Care Team Description 01/15/2022 Orders Only Occupational Medicine Tiffany Pena nter for screening for COVID-19 01/15/2022 Orders Only Occupational Medicine Wilda Zhang, En counter for RN screening for COVID-19 (Prima ry Dx) 11/28/2021 Lab Requisition Clinical Laboratory Outr Resulting Lab, Provider from Last 3 Months Social History Tobacco Use Types Packs/Day Years Used Date Never Assessed Sex Assigned at Date Recorded Not on file Plan of Treatment Health Maintenance Due Date Last Done Comments COVID-19 Vaccine (2 - Booster for Rufus series) 11/02/2020 09/07/2020 Hepatitis C Screen Completed 02/26/2020 Procedures Procedure Name Priority Date/Time Associated Diagnosis Comme nts COVID-19 CV STAT 01/15/2022 7:15 EDT Encounter for (TESTING ONLY) screening for COVID-19 COVID-19 TESTING STAT 01/15/2022 7:15 EDT Encounter for Res ults for this screening for procedure are in COVID-19 the results section. RPR TITER, S Today 11/28/2021 11:52 Results for this EDT procedure are i n the results section. RPR W/ REFLEX TO Today 11/28/2021 11:52 Results for this TP-PA, S EDT procedure are i n the results section. SYPHILIS SEROLOGY Routine 11/28/2021 11:52 Result s for this EDT procedure are i n the results section. from Last 3 Months Results COVID-19 CV (TESTING ONLY) (01/15/2022 7:15 EDT) Specimen Swab - Anterior nares Performing Organization Address City/State/ZIP Code Phon e Number [facility] [address] [place] [address] COVID-19 TESTING (01/15/2022 7:15 EDT) COVID-19 rt-PCR Negative Negative [facility] Result Comment: [facility] This test has not been FDA [...] terminated or revoked sooner. Performed on the Programeter GeneXpert Instrument The 2019 novel coronavirus (SARS-CoV-2) target nucleic acids are not detected. Performing Lab Cepheid GeneXpert [facility] Lab [facility] Specimen Swab - Anterior nares Performing Organization Address City/[facility]/ZIP Code Phon e Number [facility] [address] [place] [address] (ABNORMAL) RPR TITER, S (11/28/2021 11:52 EDT) Pathologist [facility] RPR TITER 1:32 (A) Negative [facility] (REFLEX), S Comment: LABORATORIES ([facility]) Results consistent with untreated or recently treated syphilis. Clinical correlation required. For additional information on interpretation of the syphilis reverse algorithm and results, see: [email or web address] Test Performed by: [facility] - [facility] [address] [place] [address] Smoking Pipe Maker: Deon Shell M.D. Ph.D.; CLIA# [id number] Specimen Blood - Venous blood (substance) Performing Organization Address City/[facility] Code Phon e Number [facility] [address] [place] [address] (ABNORMAL) RPR W/ REFLEX TO TP-PA, S (11/28/2021 11:52 EDT) Pathologist [facility] RPR W/ REFLEX TO Positive (A) Negative [facility] TP-PA, S Comment: LABORATORIES Specimen reflexed to determine RPR titer. ?? For additional information on interpretation of the syphilis reverse algorithm and results, see: [email or web address] Test Performed by: [facility] [address] [facility], [place] [address] Smoking Pipe Maker: Deon Shell M.D. Ph.D.; CLIA# [id number] Specimen Blood - Venous blood (substance) Performing Organization Address City/State/ZIP Code Phon e Number [facility] [address] [place] [address] (ABNORMAL) SYPHILIS SEROLOGY (11/28/2021 11:52 EDT) Syphilis Serology Positive (A) Negative [facility] Comment: LABORATORY SERVICES Reflex RPR Screen sent to [place]. If RPR is Positive, it will reflex to Titer. If RPR is Negative, it will reflex to TP-PA testing. Specimen Blood - Venous blood (substance) Performing Organization Address [facility] Phon e Number [facility] [address] [place] [address] SERVICES from Last 3 Months Insurance Payer Benefit Plan Subscriber ID Effective Phone Address Typ e / Group Dates [employer] [id number] Effective for [phone] [address] [employer] all dates [address] [place] [address] Rah Olson Personal/Family Self 1970 [address] [place] [address] Care Teams Carpet Layer Helper Relationship Specialty Start Date End Date Choco Escalera MD PCP - General 07/03/21 [address] [place], [place] [id number]
--- OUTSIDE RECORDS SUMMARY | 2022-01-26 01:20 | XMS_ITS | Encounter Summary ---
:1970 Author Organization [facility] Address [address] [place] [address] Care Team Providers Name Role Phone Unknown, Provider Primary Care Provider Choco Escalera MD Primary Care Provider Encounter Details Date Type Department Care Team Description 06/22/2021 Transcribe Orders [facility] - Sagar Escalera latent (Primary Dx); [facility] - Gregory Wilhelm MD Problems related to high-risk sexual beh [facility] [address] [place] [id number] Social History Tobacco Use Types Packs/Day Years Used Date Never Assessed Sex Assigned at Date Recorded Not on file documented as of this encounter Miscellaneous Notes Addendum Note - Sylvie Juarez - 06/22/2021 1057 EST Addended by: SYLVIE JUAREZ on: 07/06/2021 09:07 Modules accepted: Orders documented in this encounter Plan of Treatment Not on filedocumented as of this encounter Procedures Procedure Name Priority Date/Time Associated Diagnosis Comme nts SYPHILIS RPR SCREEN Routine 07/03/2021 12:38 Syphili, la tent Results for this W/REFLEX EST Problems related to procedur e are in high-risk sexual the results behavior section. PK TP (TREPONEMA Routine 07/03/2021 12:38 Syphili, laten t Results for this PALLIDUM) SYSTEM EST Problems related to proc edure are in high-risk sexual the results behavior section. documented in this encounter Results PK TP (TREPONEMA PALLIDUM) SYSTEM (07/03/2021 12:38 EST) Pathologist Sig nature Test Name VD Syphilis RPR [facility] Result RPR screen: reactive [facility] MED titer 1:32. [facility] Reactive. Specimen Blood Narrative This result has an attachment that is no t available. Performing Organization Address City/[facility]/ZIP Code Phon e Number [facility] [address] [place] [address] (ABNORMAL) SYPHILIS RPR SCREEN W/REFLEX (07/03/2021 12:38 EST) Rapid Plasma Reactive Nonreactive [facility] Reagin Screen (A)Comment: MED CENTER LAB (RPR) Positive result. Specimen sent to [facility] for further testing. Specimen Blood - Venous blood (substance) Performing Organization Address City/[facility]/ZIP Code Phon e Number [facility] [address] [place] [address] documented in this encounter Visit Diagnoses Diagnosis Syphili, latent - Primary Latent syphilis, unspecified Problems related to high-risk sexual beh avior documented in this encounter Care Teams Economist Research Assistant Relationship Specialty Start Date End Date Unknown, MD Jimmie PCP - General 08/11/18 07/02/21 Choco Escalera MD PCP - General 07/03/21 [address] [place], [place] [phone] documented as of this encounter
--- OUTSIDE RECORDS SUMMARY | 2022-01-26 01:20 | XMS_ITS | Encounter Summary ---
:1970 Author Organization [facility] Address [address] [place] [address] Care Team Providers Name Role Phone Choco Escalera MD Primary Care Provider Encounter Details Date Type Department Care Team Description 01/15/2022 Orders Only [facility] - Tiffany Pena for screening [facility] Employee Health for COVID-19 [address] [place] [address] Social History Tobacco Use Types Packs/Day Years Used Date Never Assessed Sex Assigned at Date Recorded Not on file documented as of this encounter Plan of Treatment Not on filedocumented as of this encounter Procedures Procedure Name Priority Date/Time Associated Diagnosis Comme nts COVID-19 [facility] STAT 01/15/2022 7:15 EDT Encounter for (TESTING ONLY) screening for COVID-19 COVID-19 TESTING STAT 01/15/2022 7:15 EDT Encounter for Res ults for this screening for procedure are in COVID-19 the results section. documented in this encounter Results COVID-19 [facility] (TESTING ONLY) (01/15/2022 7:15 EDT) Specimen Swab - Anterior nares Performing Organization Address City/State/ZIP Code Phon e Number [facility] [address] [place] [address] COVID-19 TESTING (01/15/2022 7:15 EDT) COVID-19 rt-PCR Negative Negative [facility] Result Comment: MED CENTER LAB This test has not been [...] terminated or revoked sooner. Performed on the Novariant GeneXpert Instrument The 2019 novel coronavirus (SARS-CoV-2) target nucleic acids are not detected. Performing Lab Cepheid GeneXpert [facility] Specimen Swab - Anterior nares Performing Organization Address City/State/[facility] Code Phon e Number [facility] [address] [place] [address] documented in this encounter Visit Diagnoses Diagnosis Encounter for screening for COVID-19 documented in this encounter Care Teams Buckram Sewer Relationship Specialty Start Date End Date Choco Escalera MD PCP - General 07/03/21 [address] [place] [address] documented as of this encounter
--- OUTSIDE RECORDS SUMMARY | 2022-01-26 01:20 | XMS_ITS | Encounter Summary ---
:1970 Author Organization [facility] Address [address] [place] [address] Care Team Providers Name Role Phone Unknown, Provider Primary Care Provider Choco Escalera MD Primary Care Provider Encounter Details Date Type Department Care Team Description 02/27/2020 Lab Requisition [facility] Outr Resulting Lab, Pathology & Laboratory Provider [facility] [address] [place] [address] Social History Tobacco Use Types Packs/Day Years Used Date Never Assessed Sex Assigned at Date Recorded Not on file documented as of this encounter Plan of Treatment Not on filedocumented as of this encounter Procedures Procedure Name Priority Date/Time Associated Diagnosis Comme nts HEPATITIS C AB W Routine 02/26/2020 11:30 Results for this REFLEX TO HCV RNA EDT procedure are in BY PCR the results section. documented in this encounter Results HEPATITIS C AB W REFLEX TO HCV RNA BY PCR (02/26/2020 11:30 EDT) Pathologist Sig nature Hep C Antibody Negative Negative [facility] Specimen Blood - Venous blood (substance) Performing Organization Address City/State/ZIP Code Phon e Number [facility] [address] [place] [address] SERVICES documented in this encounter Visit Diagnoses Not on filedocumented in this encounter Care Teams Funeral Home General Manager Relationship Specialty Start Date End Date Unknown, ProviderMD PCP - General 08/11/18 07/02/21 Choco Escalera MD PCP - General 07/03/[address] [place] [id number] documented as of this encounter
--- OUTSIDE RECORDS SUMMARY | 2022-01-26 01:20 | XMS_ITS | Encounter Summary ---
:1970 Author Organization [facility] Address [address] [place] [address] Care Team Providers Name Role Phone Unknown, Provider Primary Care Provider Encounter Details Date Type Department Care Team Description 08/11/2018 Results Only [facility] Unknown, Provider, (Wo rk) Social History Tobacco Use Types Packs/Day Years Used Date Never Assessed Sex Assigned at Date Recorded Not on file documented as of this encounter Plan of Treatment Not on filedocumented as of this encounter Procedures Procedure Name Priority Date/Time Associated Comments Diagnosis QUANTIFERON TB GOLD Routine 08/11/2018 9:50 Resul ts for this PLUS EDT procedure are i n the results section. documented in this encounter Results QUANTIFERON TB GOLD PLUS (08/11/2018 9:50 EDT) [facility] TB Interpretation Negative Negative [facility] Comment: LABORATORY Reference Range: Negative SERVICES No interferon-gamma response to M. tuberculosis antige ns was detected. Infection with M. tuberculosis is unlikely. A si ngle negative result does not exclude infection with M. tuberculosis. In patients at high risk for M. tuberculosis infection , a second test should be considered in accordance with the 2017 ATS/IDSA/CDC Clinical Practive Guidelines for Diagnosis of Tuberculosis in Adul ts and Children [Gaetano CISNEROS et. al. Clin. Infect. Dis. 2017:64(2):111-115]. Results were obtained with the Qiagen QuantiFERON-TB G old Plus MANUEL. TB1 Ag minus Nil 0.00 IU/mL [facility] TB2 Ag minus Nil 0.02 IU/mL [facility] Specimen Blood Performing Organization Address City/State/ZIP Code Phon e Number [facility] [address] [place] [address] SERVICES documented in this encounter Visit Diagnoses Not on filedocumented in this encounter Care Teams Steel Pan Form Placing Supervisor Relationship Specialty Start Date End Date Unknown, Provider, PCP - General 08/11/18 07/02/21 documented as of this encounter
--- OUTSIDE RECORDS SUMMARY | 2022-01-26 01:20 | XMS_ITS | Encounter Summary ---
:1970 Author Organization [facility] Address [address] [place] [address] Care Team Providers Name Role Phone Unknown, Jimmie HEATH Primary Care Provider Choco Escalera MD Primary Care Provider Encounter Details Date Type Department Care Team Description 05/20/2020 Lab Requisition [facility] Outr Resulting Lab, Pathology & Laboratory Provider [facility] [address] [place] [address] Social History Tobacco Use Types Packs/Day Years Used Date Never Assessed Sex Assigned at Date Recorded Not on file documented as of this encounter Plan of Treatment Not on filedocumented as of this encounter Procedures Procedure Name Priority Date/Time Associated Comments Diagnosis DO NOT ORDER Today 05/20/2020 9:45 EST Results for this STANDALONE - BROAD procedure are in COVID TEST the results section. COVID-19 TESTING Routine 05/20/2020 9:45 EST Resu lts for this procedure are i n the results section. documented in this encounter Results DO NOT ORDER STANDALONE - BROAD COVID TEST (05/20/2020 9:45 EST) COVID-19 rt-PCR NEGATIVE Negative [facility] Result Comment: LABORATORY 2019-novel Coronavirus (2019 -nCoV) not detected by the qRT-PCR assay. Consider testing for other respiratory viruses or re-collecting for 2019-nCoV testing. Note: Optimum timing for peak viral levels du ring infections caused by 20 -nCoV have not been determined. Collection of multiple specimens from the same patient may be necessary to detect the virus. Limitations Positive results are indicat yisel of active infection with SARS-CoV-2 but do not rule out bacterial infection or co-infection with other viruses. The agent detected may not be the definite cause of diseas e. In addition, detection of viral RNA may not indicate the presence of infectious virus or that SARS-CoV-2 is the causative agent for clinical symptoms. Negative results do not prec lude SARS-CoV-2 infection and should not be used as the sole basis for patient management decisions. Negative results must be combined with clinical observations, patient his tory, and epidemiological in formation. False negative results may also occur if amplification inhibitors are present in the specimen or if inadequate numbers of organisms are present in the specimen. Op timum specimen types and lourdes ing for peak viral levels during infections caused by SARS-CoV-2 have not been fully determined. Collection of multiple specimens (types and time points) from the same patient may be necessary to detect the virus. The test was validated for u with upper respiratory specimens obtained via nasopharyngeal or oropharyngeal swabs in VTM, UTM, M4, M5, M6, saline, and MTM media. The performance of this test has not be en established for other spe cimens. Specimens collected using other FDA recommended Specimen Collection Materials listed in the FDA COVID-19 Diagnostic Technologies communication (July 30, 2019) are pr ocessed with the caveat that they were not all validated for use with this test and the result must be interpreted in this context. Furthermore, a false negative results may occur if a specimen is improperly collected, transported or handled. If the virus mutates in the RT-PCR target region, SARS-CoV-2 may not be detected or may be detected less predictably. Inhibitors or other types of interference may produce a false negative result. An interference study evaluating the effect of common cold medications was not performed. This test is not FDA-cleared but its performance characteristics were established by our CLIA-certified, CAP-accredited, high complexity laboratory in accordance with CLIA regulations, College of [employer] an Pathologists (CAP) guidel hunter (Jul 23, 2019), and FDA guidance (Jul 04, 2019). This test is only for use un eric the Food and Drug Administration's Emergency Use Authorization. Specimen Swab - Entire nasopharynx (body structur e) Performing Organization Address City/State/ZIP Code Phon e Number [facility] [place] [place] COVID-19 TESTING (05/20/2020 9:45 EST) COVID-19 rt-PCR NEGATIVE Negative [facility] Result Comment: LABORATORY 2019-novel Coronavirus (2019 -nCoV) not detected by the qRT-PCR assay. Consider testing for other respiratory viruses or re-collecting for 2019-nCoV testing. Note: Optimum timing for peak viral levels du ring infections caused by 20 19-nCoV have not been determined. Collection of multiple specimens from the same patient may be necessary to detect the virus. Limitations Positive results are indicat yisel of active infection with SARS-CoV-2 but do not rule out bacterial infection or co-infection with other viruses. The agent detected may not be the definite cause of diseas e. In addition, detection of viral RNA may not indicate the presence of infectious virus or that SARS-CoV-2 is the causative agent for clinical symptoms. Negative results do not prec lude SARS-CoV-2 infection and should not be used as the sole basis for patient management decisions. Negative results must be combined with clinical observations, patient his tory, and epidemiological in formation. False negative results may also occur if amplification inhibitors are present in the specimen or if inadequate numbers of organisms are present in the specimen. Op timum specimen types and lourdes ing for peak viral levels during infections caused by SARS-CoV-2 have not been fully determined. Collection of multiple specimens (types and time points) from the same patient may be necessary to detect the virus. The test was validated for u with upper respiratory specimens obtained via nasopharyngeal or oropharyngeal swabs in VTM, UTM, M4, M5, M6, saline, and MTM media. The performance of this test has not be en established for other spe cimens. Specimens collected using other FDA recommended Specimen Collection Materials listed in the FDA COVID-19 Diagnostic [employer] communication (July 30, 2019) are pr ocessed with the caveat that they were not all validated for use with this test and the result must be interpreted in this context. Furthermore, a false negative results may occur if a specimen is improperly collected, transported or handled. If the virus mutates in the RT-PCR target region, SARS-CoV-2 may not be detected or may be detected less predictably. Inhibitors or other types of interference may produce a false negative result. An interference study evaluating the effect of common cold medications was not performed. This test is not FDA-cleared but its performance characteristics were established by our CLIA-certified, CAP-accredited, high complexity laboratory in accordance with CLIA regulations, College of [employer] an Pathologists (CAP) guidel hunter (Jul 23, 2019), and FDA guidance (Jul 04, 2019). This test is only for use un eric the Food and Drug Administration's Emergency Use Authorization. Performing Lab [facility] LABORATORY SERVICES Specimen Swab Performing Organization Address City/State/ZIP Code Phon e Number [facility] [address] [place] [address] [facility] [place], [place] documented in this encounter Visit Diagnoses Not on filedocumented in this encounter Care Teams Health Information Internship Relationship Specialty Start Date End Date Unknown, Provider, PCP - General 08/11/18 07/02/21 Choco Escalera MD PCP - General 07/03/21 [address] [place], [place] [id number] documented as of this encounter
== END 2022-02-02 23:59 | disposition home or self-care (01) ==
LOC: INF 01:03
PROVIDERS: PCP Internal Medicine; Visit Provider Nurse Practitioner Family
DX: A53.0 Latent syphilis, unspecified as early or late (principal)
CPT/HCPCS: 96372; J0561

== ENCOUNTER 2022-02-09 01:08 | Outpatient (RCR) | payer OTHER, SELFPAY ==
--- OUTSIDE RECORDS SUMMARY | 2022-02-09 01:10 | XMS_ITS | Encounter Summary ---
:1970 Author Organization [facility] [place] [address] Care Team Providers Name Role Phone Vandana Helton MD Primary Care Provider Encounter Details Date Type Department Care Team Description 02/16/2020 Telephone Urology at [facility] Art Garcia, [place] [address] Social History Tobacco Use Types Packs/Day [...] on filedocumented in this encounter Care Teams Clinical Research Assistant Relationship Specialty Start Date End Date Vandana Helton MD PCP - General Family Medicine 10/31/18 [address] [place] [address] documented as of this encounter
--- OUTSIDE RECORDS SUMMARY | 2022-02-09 01:10 | XMS_ITS | Encounter Summary ---
:1970 Author Organization [facility] [place] [place] [address] Care Team Providers Name Role Phone ElenNhunglori DUMONT Primary Care Provider [phone] Reason for Referral Consultation (Routine) - Closed Specialty Diagnoses / Procedures Referred By Contact Refer red To Contact Urology Diagnoses Erectile dysfunction, unspecified erectile dysfunction type Cleo Fitzpatrick MD [facility] [place] [address] [place] [address] Referral ID Status Reason Start Date Expiration Date Visits V isits Requested Authorized [id number] Closed Consult, 08/18/2018 08/18/2019 1 1 Test & Treat Reason for Visit Consultation (Routine) - Closed Specialty Diagnoses / Procedures Referred By Contact Refer red To Contact Endocrinology Diagnoses HYPOTHYROIDISM Toma Myrick [facility]ocrinology [address] [facility] [address] [place] [address] [place] [address] Referral ID Status Reason Start Date Expiration Date Visits V isits Requested Authorized [id number] Closed Consult, 05/14/2018 05/14/2019 1 1 Test & Treat Connection Center Encounter Details Date Type Department Care Team Description 08/13/2018 Office Visit Endocrinology at [facility] Joan Lipscomb MD [facility] [place] [address] Hypogonadism in male; [facility] Cleo Fitzpatrick MD [facility] [place] [address] Erectile dysfunction, unspecified erecti [place] [address] Social History Tobacco Use Types Packs/Day [...] testosterone replacement (prescribed by Dr. Alvarenga in [facility] Endocrine) as he was bothered by [...] depression, anxiety Social History: Recently moved to [place], [place] (moved from [place] [facility] last November). Works as haz tech at [employer] Current smoker-1/2 pack to 3/4 pack per day EtOH: Couple drinks monthly No drug use Family History: Father-[place] in 80s Mother-COPD Brother-healthy Vitals Last value [...] on testosterone replacement 3 years ago by [employer] in [place], but has recently moved to the area [...] today. Plan: #Hypogonadism -Obtained records from prior [employer] (Dr. Gunderson [facility] Endocrinology) -Follow up Total and Free testosterone levels (obtained 4 days after weekly injection) -PSA normal, hematocrit upper normal range #Erectile dysfunction -May have psychologic component given intermittent morning erections -Urology referral placed -Follow up free and total testosterone level Patient was seen and discussed with Staff [employer], Dr. Greta Fitzpatrick PGY 4 Endocrinology Pager [phone] Joan Hart MD - 08/13/2018 8:00 AM EDT I saw this patient with Dr. Fitzpatrick. I reviewed the shaw portions of the history and physical exam,and reviewed pertinent lab data. I answered all patient questions. I was involved in all medical decision making and agree with this plan. JOAN HART MD [employer]man Section of Endocrinology [facility] documented in this encounter Plan of Treatment [...] P athologist Signature Neutrophils % 52.0 % [facility] Neutr Abs (ANC) 3.11 1.70 - [facility] 6.10 [facility] x10(3)/[facility] LABORATORY Lymphocytes % 33.4 % [facility] Lymphocytes Abs 2.0 0.9 - 3.2 [facility] x10(3)/[facility] LABORATORY Monocytes % 10.2 % [facility] Monocyte Abs 0.6 0.3 - 0.9 [facility] x10(3)/[facility] LABORATORY Eosinophils % 3.5 % [facility] Eosinophils Abs 0.2 0.0 - 0.4 [facility] x10(3)/[facility] LABORATORY Basophils % 0.7 % [facility] Basophils Abs 0.0 0.0 - 0.1 [facility] x10(3)/[facility] LABORATORY Immature Gran % 0.20 % [facility] Comment: Immature granulocytes(IG's)percentage an d absolute count will include metamyelocytes, myelocytes, and promyelo cytes. Blood smears from CBCs yielding IG's will be scanned manually for concor dance. If this scan disagrees with the automated IG or if promyelocytes are not ed, a manual differential will be performed. Dara Gran Abs 0.01 0.00 - 0.04 x10(3)/[facility] LABORATORY Specimen Anatomical Collection Method Collection Time Receive d Time (Source) Location / / Volume Laterality Blood specimen 08/13/2018 9:29 AM 019 9:36 (specimen) EDT AM EDT Resulting Agency Comment Spec In Lab Cleo Fitzpatrick MD HEMATOLOGY ORDERABLES Performing Organization Address City/State/[place] [address] (ABNORMAL) Hemogram (08/13/2018 9:29 AM EDT) Analysis Performed At Patho logist Time Signature WBC 6.0 4.0 - 9.5 [facility] x10(3)/[facility] LABORATORY RBC 5.16 4.58 - [facility] 5.54 [facility] x10(6)/[facility] LABORATORY Hemoglobin 16.6 (H) 13.7 - [place] 16.5 gm/dL [facility] Hematocrit 46.7 40.5 - [facility] 48.5 % [facility] MCV 90.5 82.9 - [facility] 93.1 [facility] LABORATORY MCH 32.2 (H) 27.5 - [place] 32.1 pg [facility] MCHC 35.5 32.0 - [facility] 35.7 gm/dL [facility] Platelets 135 (L) 145 - 357 [facility] x10(3)/[facility] LABORATORY RDWSD 40.7 36.0 - [facility] 45.0 [facility] LABORATORY RDWCV 12.3 11.4 - [facility] 13.8 % [facility] MPV 10.9 7.6 - 12.9 [facility] LABORATORY nRBC % Auto 0.0 % [facility] nRBC Abs Auto 0.000 0.000 - [facility] 0.000 [facility] x10(3)/[facility] LABORATORY Specimen Anatomical Collection Method Collection Time Receive d Time (Source) Location / / Volume Laterality Blood specimen 08/13/2018 9:29 AM 019 9:36 (specimen) EDT AM EDT Resulting Agency Comment Spec In Lab Cleo Fitzpatrick MD HEMATOLOGY ORDERABLES Performing Organization Address City/State/Z[place] [address] Testosterone, total and free (08/13/2018 9:29 AM EDT) P athologist Signature Testo Total 575 250 - 1100 [facility] ng/dL [facility] Comment: For additional information, please refer to http://education.PassionTag.com/fa q/ [email or web address] (This link is being provided for informa tional/ educational purposes only.) This test was developed and its analytic al performance characteristics have been determined by [employer] a [employer] [place], [place]. It has not been cleared or approved by the U.S. Food and Drug Administration. This assay has been amanda dated pursuant to the CLIA regulations and is used for clinical purposes. Testo Free 88.0 35.0 - 155.0 pg/mL [facility] Comment: This test was developed and its analytic al performance characteristics have been determined by [employer] a [employer] [place], [place]. It has not been cleared or approved by the U.S. Food and Drug Administration. This assay has been amanda dated pursuant to the CLIA regulations and is used for clinical purposes. Test Performed by [facility], [employer] [facility], [address] [place], [place] [address] Pedro Luis Frost M.D., Ph.D., Director [facility] [employer] , [place] [id number] Specimen Anatomical Collection Method Collection Time Receive d Time (Source) Location / / Volume Laterality Blood specimen 08/13/2018 9:29 AM 019 3:27 (specimen) EDT PM EDT Resulting Agency Comment Spec In Lab Joan Hart MD CHEMISTRY ORDERABLES Performing Organization Address City/[facility]/ZIP Code Phon e Number [address] PSA (08/13/2018 9:29 AM EDT) P athologist Signature PSA Total 0.55 0.00 - [facility] (Ultrasensitiv 4.00 ng/mL [facility] LABORATORY Specimen Anatomical Collection Method Collection Time Receive d Time (Source) Location / / Volume Laterality Blood specimen 08/13/2018 9:29 AM 019 9:36 (specimen) EDT AM EDT Resulting Agency Comment Spec In Lab Joan Hart MD CHEMISTRY ORDERABLES Performing Organization Address City/State/ZIP Code Phon e Number [address] (ABNORMAL) Luteinizing Hormone (08/13/2018 9:29 AM EDT) P athologist Signature LH 1.5 (L) 1.7 - 8.6 [facility] mlU/ML [facility] Comment: Reference ranges: ?? Females ?? [...] Hart MD CHEMISTRY ORDERABLES Performing Organization Address City/[facility]/ZIP Code Phon e Number [address] (ABNORMAL) Follicle Stimulating Hormone (08/13/2018 9:29 AM EDT) athologist Signature FSH 0.7 (L) 1.5 - 12.4 [facility] mlU/ML [facility] Comment: Reference Ranges: Females: Follicular: ? 3.5-12.5 mIU/mL Ovulation: ?4.7-21.5 mIU/mL Luteal: ? 1.7-7.7 mIU/mL Postmenopausal: 25.8-134.8 mIU/mL Specimen Anatomical Collection Method Collection Time Receive d Time (Source) Location / / Volume Laterality Blood specimen 08/13/2018 9:29 AM 019 9:36 (specimen) EDT AM EDT Resulting Agency Comment Spec In Lab Joan Hart MD CHEMISTRY ORDERABLES Performing Organization Address City/[facility]/ZIP [place] [address] documented in this encounter Visit Diagnoses Diagnosis Hypogonadism in male Erectile dysfunction, unspecified erecti le dysfunction type documented in this encounter Care Teams Forging Roll Operator Relationship Specialty Start Date End Date Toma Myrick APRN PCP - General Family Medicine 05/14/18 10/30/18 [address] [place] [address] documented as of this encounter
--- OUTSIDE RECORDS SUMMARY | 2022-02-09 01:10 | XMS_ITS | Encounter Summary ---
:1970 Author Organization [facility] Address [facility] [place] [address] Care Team Providers Name Role Phone Vandana Helton MD Primary Care Provider Encounter Details Date Type Department Care Team Description 01/01/2019 Office Visit Urology at [facility] Tolu Kovacs, Erectile dysfunction, [facility] unspecified erectile Drive [facility] [address] UROLOGY [phone] [place], [place] [address] Social History Tobacco Use Types [...] type documented in this encounter Care Teams Hr Clerk Relationship Specialty Start Date End Date Vandana Helton MD PCP - General Family Medicine 10/31/18 [address] [place] [address] documented as of this encounter
--- OUTSIDE RECORDS SUMMARY | 2022-02-09 01:10 | XMS_ITS | Encounter Summary ---
:1970 Author Organization [facility] [address] Care Team Providers Name Role Phone Vandana Helton MD Primary Care Provider Encounter Details Date Type Department Care Team Description 01/09/2022 Telephone Infectious Disease a t [facility] Rafal Harrington, RN [facility] [place] [address] Social History Tobacco Use Types Packs/Day Years Used Date Current Every Day Smoker Smokeless Tobacco: Never Used Comments: 3/4 pack Sex Assigned at Date Recorded Not on file documented as of this encounter Miscellaneous Notes Telephone Encounter - Rafal Harrington RN - 01/09/2022 3:17 PM EDTSummary: Telephone Call Telephone Call Returned telephone call to nurse Li (called [facility] to inquire about local resources). Passed along resources for her to call her patient back with, such as [facility] (operates on a Sliding-Fee Scale, for patients paying out of pocket, [facility] offers a sliding-fee scale based on your income,household size and other factors). Additionally discussed calling the [place] Department of Public Health. Telephone Encounter - Rafal Harrington RN - 01/09/2022 3:17 PM EDT ----- Message from Estephania Caldwell sent at 01/09/2022 2:47 PM EDT ----- Li from [facility] ( she is the triage nurse) called regarding this pt as he tested positive for syphilis and is refusing to go to transfusion? Was wondering if there was a cheaper option for medication beside Biacillin as he says it cost to much money to get. Call back: [phone] documented in this encounter Plan of Treatment Not on filedocumented as of this encounter Visit Diagnoses Not on filedocumented in this encounter Care Teams Field Assistant Relationship Specialty Start Date End Date Vandana Helton MD PCP - General Family Medicine 10/31/18 [address] [place] [address] documented as of this encounter
--- OUTSIDE RECORDS SUMMARY | 2022-02-09 01:10 | XMS_ITS | Encounter Summary ---
:1970 Author Organization [facility] [place] [address] Care Team Providers Name Role Phone Toma Myrick APRN Primary Care Provider [phone] Reason for Visit Consultation (Routine) - Closed Specialty Diagnoses / Procedures Referred By Contact Refer red To Contact Urology Diagnoses Erectile dysfunction, unspecified erectile dysfunction type Cleo Fitzpatrick MD [facility] Urology [facility] [place] [address] [place] [address] Referral ID Status Reason Start Date Expiration Date Visits V isits Requested Authorized [id number] Closed Consult, 08/18/2018 08/18/2019 1 1 Test & Treat Encounter Details Date Type Department Care Team Description 10/09/2018 Office Visit Urology at [facility] Tolu Kovacs, Erectile dysfunction, unspec ified erectile dysfunction type; [facility] Peyronie's disease; [facility] [place] [address] UROLOGY [phone] [place], [place] [address] Social History Tobacco Use Types Packs/Day Years [...] He is single. He works as a manager labor relations. Family history is negative for any genitourinary [...] 40 minutes of our appointment in extensive [id number] counseling regarding his ED. I refilled his [...] male documented in this encounter Care Teams Auto Seat Cover Installer Relationship Specialty Start Date End Date Toma Myrick APRN PCP - General Family Medicine 05/14/18 10/30/18 [address] [place] [address] documented as of this encounter
--- OUTSIDE RECORDS SUMMARY | 2022-02-09 01:11 | XMS_ITS | Encounter Summary ---
:1970 Author Organization [facility] Address [address] [place] [address] Care Team Providers Name Role Phone Unknown, Provider Primary Care Provider Encounter Details Date Type Department Care Team Description 08/11/2018 Results Only [facility]- PRISM Unknown, Provider, (Wo rk) Social History [...] QUANTIFERON TB GOLD PLUS (08/11/2018 9:50 EDT) [facility] TB Interpretation Negative Negative [facility] Comment: LABORATORY Reference Range: Negative SERVICES No [...] MANUEL. TB1 Ag minus Nil 0.00 IU/mL [facility] LABORATORY SERVICES TB2 Ag minus Nil 0.02 IU/mL [facility] LABORATORY SERVICES Specimen Blood Performing Organization Address City/State/ZIP Code Phon e Number [facility] [address] [place] [address] SERVICES documented in this encounter Visit Diagnoses Not on filedocumented in this encounter Care Teams Commutator Assembler Relationship Specialty Start Date End Date Unknown, Provider, PCP - General 08/11/18 07/02/21 documented as of this encounter
--- OUTSIDE RECORDS SUMMARY | 2022-02-09 01:11 | XMS_ITS | Clinical Summary ---
:1970 Author Organization [facility] Address [address] [place] [address] Care Team Providers Name Role Phone Choco Escalera MD Primary Care Provider Encounters Date Type Specialty Care Team Description 01/15/2022 Orders Only Occupational Medicine Tiffany Pena nter for screening for COVID-19 (Prima ry Dx) 01/15/2022 Orders Only Occupational Medicine Wilda Zhang, [...] Organization Address City/State/ZIP Code Phon e Number [facility] [address] [place] [address] COVID-19 TESTING (01/15/2022 7:15 EDT) COVID-19 rt-PCR Negative Negative [facility] Result Comment: [facility] This test has not been FDA [...] terminated or revoked sooner. Performed on the [employer] GeneXpert Instrument The 2019 novel coronavirus (SARS-CoV-2) target nucleic acids are not detected. Performing Lab Cepheid GeneXpert 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 Clinical correlation required. For additional information on interpretation of the syphilis reverse algorithm and results, see: [email or web address] Test Performed by: [facility] [address] [place] [address] Jig Boring Machine Set Up Operator: Deon Shell M.D. Ph.D.; CLIA# [id number] Specimen Blood - Venous blood (substance) Performing Organization Address City/[facility]/ZIP Code Phon e Number [facility]ORATORIES [address] [place] [address] (ABNORMAL) RPR W/ REFLEX TO TP-PA, S (11/28/2021 11:52 EDT) RPR W/ REFLEX TO Positive (A) Negative [facility] TP-PA, S Comment: LABORATORIES Specimen reflexed to determine RPR titer. ?? For additional information on interpretation of the syphilis reverse algorithm and results, see: [email or web address] Test Performed by: [facility] [address] [place] [address] Jig Boring Machine Set Up Operator: Deon Shell M.D. Ph.D.; CLIA# [id number] Specimen Blood - Venous blood (substance) Performing Organization Address City/[facility] Phon e Number [facility]OR[facility]IES [address] [place] [address] (ABNORMAL) SYPHILIS SEROLOGY (11/28/2021 11:52 EDT) Syphilis Serology Positive (A) Negative [facility] Comment: LABORATORY SERVICES Reflex RPR Screen sent to [place]. If RPR is Positive, it will reflex to Titer. If RPR is Negative, it will reflex to TP-PA testing. Specimen Blood - Venous blood (substance) Performing Organization Address City/[facility] Phon e Number [facility] [address] [place] [address] SERVICES from Last 3 Months Insurance Payer Benefit Plan Subscriber ID Effective Phone Address Typ e / Group Dates [employer] PLANS [id number] Effective for [phone] [address] [employer] all dates [address] [place] [address] Rah Olson Personal/Family Self 1970 [address] (Home) [place] [address] Bailiff Or Sheriff Relationship Specialty Start Date End Date Choco Escalera MD PCP - General 07/03/21 [address] [place], [place] [id number]
--- OUTSIDE RECORDS SUMMARY | 2022-02-09 01:11 | XMS_ITS | Encounter Summary ---
:[address] [facility] Address [address] [place] [address] Care Team Providers Name Role Phone Unknown, Jimmie HEATH Primary Care Provider Choco Escalera MD Primary Care Provider Encounter Details Date Type Department Care Team Description 05/20/2020 Lab Requisition [facility] Outr Resulting Lab, Pathology & Laboratory Provider [facility] [address] [place] [address] Social History Tobacco Use Types Packs/Day Years [...] (05/20/2020 9:45 EST) COVID-19 rt-PCR NEGATIVE Negative [facility] Result Comment: LABORATORY 2019-novel Coronavirus (2019 [...] Organization Address City/State/ZIP Code Phon e Number [facility] [place], [place] COVID-19 TESTING (05/20/2020 9:45 EST) COVID-19 rt-PCR NEGATIVE Negative [facility] Result Comment: LABORATORY 2019-novel Coronavirus (2019 [...] Administration's Emergency Use Authorization. Performing Lab [facility] LABORATORY SERVICES Specimen Swab Performing Organization Address City/State/ZIP Code Phon e Number [facility] [address] [place] [address] [facility] [place], [place] documented in this encounter Visit Diagnoses Not on filedocumented in this encounter Care Teams Tongue And Groove Machine Operator Relationship Specialty Start Date End Date Unknown, Provider, PCP - General 08/11/18 07/02/21 Choco Escalera MD PCP - General 07/03/21 [address] [place], [place] [id number] documented as of this encounter
--- OUTSIDE RECORDS SUMMARY | 2022-02-09 01:11 | XMS_ITS | Encounter Summary ---
:1970 Author Organization [facility] Address [address] [place] [address] Care Team Providers Name Role Phone Unknown, Provider Primary Care Provider Choco Escalera MD Primary Care Provider Encounter Details Date Type Department Care Team Description 02/27/2020 Lab Requisition [facility] Outr Resulting Lab, Pathology & Laboratory Provider [facility] [address] [place] [address] Social History Tobacco Use Types Packs/Day Years [...] EDT) HIV 1 and 2 Negative Negative [facility] Antibody/p24 Comment: LABORATORY Antigen, 4th If acute HIV-1 infection is suspected in a high risk ??patient, submit plasma specimen for HIV-1 RNA quantitation test. SERV ICES Generation Fourth Generation assay performed on the Siemens CloudWorka ur. Specimen Blood - Venous blood (substance) Performing Organization Address City/State/ZIP Code Phon e Number [facility] [address] [place] [address] SERVICES documented in this encounter Visit Diagnoses Not on filedocumented in this encounter Care Teams Ladder Operator Relationship Specialty Start Date End Date Unknown, ProviderMD PCP - General 08/11/18 07/02/21 Choco Escalera MD PCP - General 07/03/21 [address] [place] [address] documented as of this encounter
--- OUTSIDE RECORDS SUMMARY | 2022-02-09 01:11 | XMS_ITS | Encounter Summary ---
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 Clinical correlation required. For additional information on interpretation of the syphilis reverse algorithm and results, see: [email or web address] Test Performed by: [facility] [address] [place] [id number] Commercial Journeyman Electrician: Deon Shell M.D. Ph.D.; CLIA# [id number] Specimen Blood - Venous blood (substance) Performing Organization Address City/State/ZIP Code [facility] e Number [facility] [address] [place] [address] (ABNORMAL) RPR W/ REFLEX TO TP-PA, S (11/28/2021 11:52 EDT) RPR W/ REFLEX TO Positive (A) Negative [facility] TP-PA, S Comment: LABORATORIES Specimen reflexed to determine RPR titer. ?? For additional information on interpretation of the syphilis reverse algorithm and results, see: [email or web address] Test Performed by: [facility] [address] [facility], [place] [address] Commercial Journeyman Electrician: Deon Shell M.D. Ph.D.; CLIA# [id number] Specimen Blood - Venous blood (substance) Performing Organization Address [facility]/ZIP Code Phon e Number [facility] [address] [place] [address] (ABNORMAL) SYPHILIS SEROLOGY (11/28/2021 11:52 EDT) Syphilis Serology Positive (A) Negative [facility] Comment: LABORATORY SERVICES Reflex RPR Screen sent to [place]. If RPR is Positive, it will reflex to Titer. If RPR is Negative, it will reflex to TP-PA testing. Specimen Blood - Venous blood (substance) Performing Organization Address [facility] Code Phon e Number [facility] [address] [place] [address] SERVICES documented in this encounter Visit Diagnoses Not on filedocumented in this encounter Care Teams Marketing Research Intern Relationship Specialty Start Date End Date Choco Escalera MD PCP - General 07/03/21 [address] [place], [place] [phone] documented as of this encounter
== END 2022-03-05 23:59 | disposition home or self-care (01) ==
LOC: INF 01:08
PROVIDERS: PCP Internal Medicine; Visit Provider Nurse Practitioner Family
DX: A53.0 Latent syphilis, unspecified as early or late (principal)
CPT/HCPCS: 96372; J0561

== ENCOUNTER 2023-06-24 16:13 | Outpatient (REF) | payer OTHER, SELFPAY ==
[2023-06-24 21:14] LABS: Hemoglobin A1C 6.5 % (<5.7)
[2023-06-30 09:06] LABS: Testosterone, Total 675 ng/dL (240-950)
== END 2023-06-24 16:14 | disposition home or self-care (01) ==
LOC: NCHCN 16:13
PROVIDERS: PCP Internal Medicine; Visit Provider Family Medicine
DX: R73.03 Prediabetes (principal); E29.1 Testicular hypofunction
CPT/HCPCS: 84403; 83036

== ENCOUNTER 2023-10-17 20:43 | Outpatient (REF) | payer OTHER, SELFPAY ==
[2023-10-17 21:18] LABS: Creatine Kinase 262 U/L (39-308)
[2023-10-17 21:22] LABS: C-Reactive Protein < 0.50 mg/dL (<or=0.5)
[2023-10-18 21:25] LABS: HIV-1/2 Ag & Ab Screen Negative (Negative)
[2023-10-21 14:35] LABS: Lyme Ab w Rflx to Lyme Confirm Negative (Negative)
[2023-10-22 12:07] LABS: Testosterone, Total 363 ng/dL (240-950)
== END 2023-10-17 20:44 | disposition home or self-care (01) ==
LOC: NCHCN 20:43
PROVIDERS: PCP Internal Medicine; Visit Provider Family Medicine
DX: Z72.51 High risk heterosexual behavior (principal); M25.572 Pain in left ankle and joints of left foot; E29.1 Testicular hypofunction
CPT/HCPCS: 82550; 84403; 87389; 86140; 86618

== ENCOUNTER 2024-11-30 14:37 | Outpatient (REF) | payer OTHER, SELFPAY ==
[2024-11-30 16:49] LABS: ALT 73 U/L (16-63); AST 35 U/L (15-37); Albumin 4.0 g/dL (3.4-5.0); Alkaline Phosphatase 46 U/L (46-116); Anion Gap 7.2 mmol/L (3-11); BUN 11 mg/dL (7-18); Bilirubin, Total 0.4 mg/dL (0.2-1.0); CO2 30.8 mmol/L (21.0-32.0); Calcium 9.6 mg/dL (8.5-10.1); Calculated LDL 35 mg/dL (<100); Chloride 101 mmol/L (98-107); Cholesterol 130 mg/dL (<200); Estimated GFR 80.27 (mL/min/1.73m2); Glucose 156 mg/dL (74-106); HDL Cholesterol 26 mg/dL (>or=40); Potassium 3.8 mmol/L (3.5-5.1); Sodium 139 mmol/L (136-145); Total Protein 7.5 g/dL (6.4-8.2); Triglyceride 348 mg/dL (<150)
== END 2024-11-30 14:38 | disposition home or self-care (01) ==
LOC: NCHCN 14:37
PROVIDERS: PCP Internal Medicine; Visit Provider Family Medicine
DX: E11.9 Type 2 diabetes mellitus without complications (principal); E29.1 Testicular hypofunction
CPT/HCPCS: 80053; 80061; 84402; 84403

== ENCOUNTER 2025-03-04 13:06 | Outpatient (REF) | payer OTHER, SELFPAY ==
[2025-03-04 16:40] LABS: Microalb ug/mg Crea 6.4 ug/mg Cr
== END 2025-03-04 13:07 | disposition home or self-care (01) ==
LOC: NCHCN 13:06
PROVIDERS: PCP Internal Medicine; Visit Provider Family Medicine
DX: E11.9 Type 2 diabetes mellitus without complications (principal)
CPT/HCPCS: 82043; 82570